=== PATIENT | female | born 1935 | race Caucasian/White ===

== ENCOUNTER 2016-06-16 10:18 | Inpatient (IN) | payer OTHER ==
[~2016-06-16] VITALS: Ht 157.5 cm; Wt 56.8 kg
[~2016-06-16 10:18] MED LIST: ASPI-515 PO; ATEN25TA PO; CEFD300C2 PO; CIPR500T3 PO; CITA10TA4 PO; CLOP75TA22 PO; HYDR-3240 PO; HYDR12.58 PO; HYDR1TAB12 PO; LEVE500T53 PO; LEVO750T26 PO; LISI-167 PO; METR500T PO; ONDA4TAB10 PO; PANT40TA3 PO; PNV1TABL4 PO; POLY17PO5 PO; POTA20TA14 PO; PRAV80TA2 PO
[2016-06-16] MEDS ORDERED: ONDANSETRON 2MG/ML, 2ML IVPush ONE (11:30)
[2016-06-16] MEDS ORDERED: HYDROmorphone 1 MG/ML, 1ML IVPush PRN (11:30)
[2016-06-16] MEDS ORDERED: SODIUM CHLORIDE FLUSH 10ML SYR IVF ONE (11:30)
[2016-06-16] MEDS ORDERED: HYDROmorphone 1 MG/ML, 1ML ONE (11:57)
[2016-06-16] MEDS ORDERED: ONDANSETRON 2MG/ML, 2ML ONE (11:58)
[2016-06-16 12:12] LABS: HEMOGLOBIN 11.3 g/dL (11.7-16.4)
[2016-06-16 12:28] LABS: BLOOD UREA NITROGEN 20 mg/dL (7-18)
[2016-06-16 12:57] LABS: DIFF TOTAL CELLS COUNTED 100 CELL DIFF
[2016-06-16 13:00] LABS: POLYCHROMASIA 1+; VERIFY COUNTS? YES
[2016-06-16] MEDS ORDERED: ACETAMINOPHEN 500 MG TABLET PO ONE (14:00)
[2016-06-16] MEDS ORDERED: CEFTRIAXONE PMX 1GM/50ML 50 ML IV ONE (14:00)
[2016-06-16] MEDS ORDERED: ACETAMINOPHEN 500 MG TABLET ONE (14:26)
[2016-06-16] MEDS ORDERED: CEFTRIAXONE PMX 1GM/50ML 50 ML ONE (14:26)
[2016-06-16] MEDS ORDERED: HYDR-882 PO (14:38)
[2016-06-16] MEDS ORDERED: RANI300T PO (14:40)
[2016-06-16] MEDS ORDERED: IBUP800T PO (14:43)
[2016-06-16] MEDS ORDERED: ONDANSETRON 2MG/ML, 2ML IVP PRN (15:00)
[2016-06-16] MEDS ORDERED: MORPHINE SULFATE 4 MG/ML, 1ML IVPush PRN (15:00)
[2016-06-16] MEDS ORDERED: ACETAMINOPHEN 325 MG TABLET PO PRN (15:00)
[2016-06-16] MEDS ORDERED: DOCUSATE 100 MG CAPSULE PO PRN (15:00)
[2016-06-16] MEDS ORDERED: BISACODYL 10 MG SUPP PR PRN (15:00)
[2016-06-16] MEDS ORDERED: POLYETHYLENE GLYCOL 17 GM PACKET PO PRN (15:00)
[2016-06-16] MEDS ORDERED: OMNIPAQUE 350 MG/ML, 100ML BOTTLE ONE (15:27)
[2016-06-16 15:28] LABS: ASPARTATE AMINO TRANSFERASE 25 U/L (15-37)
[2016-06-16] MEDS: ENOXAPARIN 40 MG/0.4 ML SQ SCH (17:20)
[2016-06-16 17:41] VITALS: BP 158/61
[2016-06-16] MEDS: OXYcodone IR 5MG TABLET PO PRN ×2 (17:41→21:49)
[2016-06-16] MEDS: SODIUM CHLORIDE 0.9% 1,000 ML IV SCH (18:10)
[2016-06-16 20:38] VITALS: BP 121/55
[2016-06-16] MEDS: CITALOPRAM 10 MG TABLET PO SCH (20:53)
[2016-06-16] MEDS: LISINOPRIL 10 MG TABLET PO SCH (20:53)
[2016-06-16] MEDS: LEVETIRACETAM 500 MG TABLET PO SCH (20:54)
[2016-06-16] MEDS: PRAVASTATIN 40 MG TABLET PO SCH (21:49)
[2016-06-17 01:15] VITALS: BP 104/52
[2016-06-17] MEDS: CEFTRIAXONE PMX 1GM/50ML 50 ML IV SCH ×2 (02:29→15:36)
[2016-06-17] MEDS: SODIUM CHLORIDE 0.9% 1,000 ML IV SCH (02:29)
[2016-06-17] MEDS: OXYcodone IR 5MG TABLET PO PRN ×3 (04:48→20:31)
[2016-06-17 06:12] LABS: ASPARTATE AMINO TRANSFERASE 20 U/L (15-37); BLOOD UREA NITROGEN 18 mg/dL (7-18)
[2016-06-17 07:01] VITALS: BP 100/51
[2016-06-17] MEDS: LEVETIRACETAM 500 MG TABLET PO SCH ×2 (10:09→20:30)
[2016-06-17] MEDS: ATENOLOL 25 MG TABLET PO SCH (10:09)
[2016-06-17] MEDS: HYDROCHLOROTHIAZIDE 12.5 MG CAPSULE PO SCH (10:10)
[2016-06-17] MEDS: LISINOPRIL 10 MG TABLET PO SCH ×2 (10:10→20:30)
[2016-06-17] MEDS ORDERED: FENTANYL PF 100 MCG/2ML ONE (10:14)
[2016-06-17] MEDS ORDERED: MIDAZOLAM 1 MG/ML, 5ML ONE (10:15)
[2016-06-17] MEDS: PANTOPROZOLE 40MG TABLET PO SCH ×2 (12:39→22:00)
[2016-06-17 13:24] VITALS: BP 104/53
[2016-06-17] MEDS: ENOXAPARIN 40 MG/0.4 ML SQ SCH (15:36)
[2016-06-17] MEDS: CITALOPRAM 10 MG TABLET PO SCH (20:29)
[2016-06-17] MEDS: PRAVASTATIN 40 MG TABLET PO SCH (20:30)
[2016-06-17 21:12] VITALS: BP 147/64
[2016-06-18 01:44] VITALS: BP 125/49
[2016-06-18] MEDS: CEFTRIAXONE PMX 1GM/50ML 50 ML IV SCH (02:32)
[2016-06-18] MEDS: OXYcodone IR 5MG TABLET PO PRN ×3 (02:37→14:30)
[2016-06-18 05:03] LABS: HEMOGLOBIN 8.9 g/dL (11.7-16.4)
[2016-06-18 05:10] LABS: BLOOD UREA NITROGEN 20 mg/dL (7-18)
[2016-06-18 07:23] VITALS: BP 129/56
[2016-06-18] MEDS: ATENOLOL 25 MG TABLET PO SCH ×2 (09:00→09:29)
[2016-06-18] MEDS: LISINOPRIL 10 MG TABLET PO SCH (09:29)
[2016-06-18] MEDS: HYDROCHLOROTHIAZIDE 12.5 MG CAPSULE PO SCH (09:30)
[2016-06-18] MEDS: PANTOPROZOLE 40MG TABLET PO SCH (09:31)
[2016-06-18] MEDS: LEVETIRACETAM 500 MG TABLET PO SCH (09:31)
[2016-06-18] MEDS ORDERED: LEVO750T6 PO (11:41)
[2016-06-18] MEDS ORDERED: PANT40TA5 PO (11:49)
[2016-06-18 13:05] VITALS: BP 127/60
== END 2016-06-18 14:45 | disposition home or self-care (01) | DRG 872 ==
LOC: ED 13:06 → EDIP 14:39 → SUATTDRO 14:47 → 4WST 16:42
PROVIDERS: ADMIT Hospitalist; ATTEND Hospitalist
PROC: 0T9B70Z Drainage of Bladder with Drainage Device, Via Natural or Artificial Opening (ICD-10-PCS; 2016-06-16)
PROC: 0DJ68ZZ Inspection of Stomach, Via Natural or Artificial Opening Endoscopic (ICD-10-PCS; principal; 2016-06-17 10:30)
DX: A41.9 Sepsis, unspecified organism (principal); E44.0 Moderate protein-calorie malnutrition; I50.22 Chronic systolic (congestive) heart failure; F11.20 Opioid dependence, uncomplicated; N10 Acute pyelonephritis; I11.0 Hypertensive heart disease with heart failure; I25.10 Atherosclerotic heart disease of native coronary artery without angina pectoris; K21.9 Gastro-esophageal reflux disease without esophagitis; I73.9 Peripheral vascular disease, unspecified; D64.9 Anemia, unspecified; M51.36 Other intervertebral disc degeneration, lumbar region; G40.909 Epilepsy, unspecified, not intractable, without status epilepticus; M54.30 Sciatica, unspecified side; E78.5 Hyperlipidemia, unspecified; F17.200 Nicotine dependence, unspecified, uncomplicated; G89.29 Other chronic pain; M19.90 Unspecified osteoarthritis, unspecified site; F32.9 Major depressive disorder, single episode, unspecified; K21.0 Gastro-esophageal reflux disease with esophagitis; I44.7 Left bundle-branch block, unspecified; K26.9 Duodenal ulcer, unspecified as acute or chronic, without hemorrhage or perforation; Z90.49 Acquired absence of other specified parts of digestive tract; Z80.59 Family history of malignant neoplasm of other urinary tract organ; Z88.2 Allergy status to sulfonamides; I25.2 Old myocardial infarction; Z88.1 Allergy status to other antibiotic agents; Z88.5 Allergy status to narcotic agent; Z68.22 Body mass index [BMI] 22.0-22.9, adult; Z87.11 Personal history of peptic ulcer disease; K22.70 Barrett's esophagus without dysplasia; K44.9 Diaphragmatic hernia without obstruction or gangrene
CPT/HCPCS: 36415; 72110; 74020; 74177; 80048; 80053; 80076; 81001; 82040; 83605; 83690; 83735; 85025; 87040; 87086; 96365; 96366; 96375; J0696; J1170; J1650; J2250; J2405; J3010; Q9967; J7030

== ENCOUNTER 2016-07-24 04:52 | Emergency (ER) | payer OTHER ==
[~2016-07-24] VITALS: Ht 157.5 cm; Wt 56.4 kg
[~2016-07-24 04:52] MED LIST changes: -CEFD300C2 PO; +CEFD300C37 PO; +HYDR-882 PO; +IBUP800T PO; +LEVO750T6 PO; +PANT40TA5 PO; +RANI300T PO
[2016-07-24] MEDS ORDERED: OMNIPAQUE 350 MG/ML, 100ML BOTTLE ONE (05:41)
[2016-07-24] MEDS ORDERED: SODIUM CHLORIDE 0.9% 1,000 ML IV ONE (05:41)
[2016-07-24] MEDS ORDERED: CLOP75TA22 PO (05:46)
[2016-07-24] MEDS ORDERED: ONDANSETRON 2MG/ML, 2ML ONE (05:52)
[2016-07-24] MEDS ORDERED: MORPHINE SULFATE 4 MG/ML, 1ML ONE (05:52)
[2016-07-24] MEDS ORDERED: ONDANSETRON 2MG/ML, 2ML IVPush ONE (06:00)
[2016-07-24] MEDS ORDERED: MORPHINE SULFATE 4 MG/ML, 1ML IVPush PRN (06:00)
[2016-07-24] MEDS ORDERED: SODIUM CHLORIDE FLUSH 10ML SYR IVF ONE (06:00)
[2016-07-24 06:14] LABS: BLOOD UREA NITROGEN 38 mg/dL (7-18)
[2016-07-24 07:48] LABS: PATH.CAST-FLAG NOT PRESENT; SPERM-FLAG NOT PRESENT; SRC-FLAG NOT PRESENT; XTAL-FLAG NOT PRESENT; YLC-FLAG NOT PRESENT
[2016-07-24 12:03] VITALS: BP 134/48
== END 2016-07-24 12:05 | disposition home or self-care (01) ==
LOC: ED 11:44
DX: R10.32 Left lower quadrant pain (principal); R33.9 Retention of urine, unspecified; K59.00 Constipation, unspecified; I10 Essential (primary) hypertension; E78.5 Hyperlipidemia, unspecified; I50.20 Unspecified systolic (congestive) heart failure; K21.9 Gastro-esophageal reflux disease without esophagitis; I73.9 Peripheral vascular disease, unspecified; M19.90 Unspecified osteoarthritis, unspecified site; I25.2 Old myocardial infarction; Z90.49 Acquired absence of other specified parts of digestive tract
CPT/HCPCS: 36415; 74177; 80048; 81001; 82040; 85025; 87086; 96361; 96374; 96375; 99285; J2405; J7030; Q9967

== ENCOUNTER 2016-11-08 21:44 | Emergency (ER) | payer OTHER ==
[~2016-11-08] VITALS: Ht 157.5 cm; Wt 47.0 kg
[~2016-11-08 21:44] MED LIST changes: -CLOP75TA22 PO; +CLOP75TA52 PO; +IBUP-1223 PO; -IBUP800T PO
[2016-11-08] MEDS ORDERED: DIAZEPAM 5 MG TABLET PO ONE (22:30)
[2016-11-08] MEDS ORDERED: HYDROmorphone 2 MG/ML, 1ML IVPush ONE (22:30)
[2016-11-08] MEDS ORDERED: DIAZEPAM 5 MG TABLET ONE (22:40)
[2016-11-08] MEDS ORDERED: HYDROmorphone 1 MG/ML, 1ML ONE (22:40)
[2016-11-08 23:46] VITALS: BP 150/49
== END 2016-11-08 23:48 | disposition home or self-care (01) ==
LOC: ED 23:39
DX: M25.552 Pain in left hip (principal); G89.29 Other chronic pain; I11.0 Hypertensive heart disease with heart failure; I50.20 Unspecified systolic (congestive) heart failure; E78.5 Hyperlipidemia, unspecified; K21.9 Gastro-esophageal reflux disease without esophagitis; M19.90 Unspecified osteoarthritis, unspecified site; I25.2 Old myocardial infarction; Z87.891 Personal history of nicotine dependence
CPT/HCPCS: 96374; 99284; J1170

== ENCOUNTER 2016-11-29 21:44 | Inpatient (IN) | payer OTHER ==
[~2016-11-29] VITALS: Ht 157.5 cm; Wt 50.6 kg
[2016-11-29] MEDS ORDERED: ONDANSETRON 2MG/ML, 2ML IVPush ONE (22:30)
[2016-11-29] MEDS ORDERED: MORPHINE SULFATE 4 MG/ML, 1ML IVPush PRN (22:30)
[2016-11-29] MEDS ORDERED: SODIUM CHLORIDE 0.9% 1,000ML IVBOLUS ONE (22:30)
[2016-11-29] MEDS ORDERED: MORPHINE SULFATE 4 MG/ML, 1ML ONE (22:36)
[2016-11-29] MEDS ORDERED: ONDANSETRON 2MG/ML, 2ML ONE (22:36)
[2016-11-29 22:44] LABS: HEMATOCRIT 31.5 % (34.6-47.8); HEMOGLOBIN 10.2 g/dL (11.7-16.4); WHITE BLOOD COUNT 6.8 x10^3/uL (3.4-10)
[2016-11-29 22:57] LABS: ASPARTATE AMINO TRANSFERASE 20 U/L (15-37); BLOOD UREA NITROGEN 21 mg/dL (7-18)
[2016-11-29 23:02] LABS: IS PT STATUS REG ER OR PRE ER? YES
[2016-11-30] MEDS ORDERED: ONDANSETRON ODT 4 MG PO PRN (01:00)
[2016-11-30] MEDS ORDERED: ENALAPRILAT 1.25 MG/ML, 2ML IVPush PRN (01:00)
[2016-11-30] MEDS ORDERED: NITROGLYCERIN 0.4 MG BOTTLE (25 TABS) SL PRN (01:00)
[2016-11-30] MEDS ORDERED: LABETALOL 5MG/ML, 20ML IVPush PRN (01:00)
[2016-11-30] MEDS ORDERED: TEMAZEPAM 15 MG CAPSULE PO PRN (01:00)
[2016-11-30] MEDS ORDERED: DOCUSATE 100 MG CAPSULE PO PRN (01:00)
[2016-11-30 01:06] VITALS: BP 167/71
[2016-11-30] MEDS: HYDROcodone/APAP 5/325 TABLET PO PRN ×5 (01:24→20:07)
[2016-11-30 02:38] LABS: FERRITIN 17.2 ng/mL (8-252)
[2016-11-30 02:44] LABS: IS PT STATUS REG ER OR PRE ER? NO
[2016-11-30] MEDS ORDERED: ASPIRIN 325 MG TABLET EC PO SCH (06:00)
[2016-11-30 07:02] LABS: HEMATOCRIT 28.6 % (34.6-47.8); HEMOGLOBIN 9.4 g/dL (11.7-16.4); WHITE BLOOD COUNT 5.8 x10^3/uL (3.4-10)
[2016-11-30 07:12] LABS: IS PT STATUS REG ER OR PRE ER? NO
[2016-11-30] MEDS ORDERED: REGADENOSON 0.4 MG/5 ML SYRINGE ONE ×2 (08:04→08:26)
[2016-11-30 08:35] VITALS: BP_SYST 121; BP_SYST 130; BP_SYST 143; BP_DIAS 59; BP_DIAS 62
[2016-11-30] MEDS: morphine SULFATE 10 MG/ML, 1ML IVPush PRN (09:00)
[2016-11-30] MEDS: LISINOPRIL 10 MG TABLET PO SCH ×2 (10:47→20:08)
[2016-11-30] MEDS: LEVETIRACETAM 500 MG TABLET PO SCH ×2 (10:47→20:07)
[2016-11-30] MEDS: ATENOLOL 25 MG TABLET PO SCH (12:31)
[2016-11-30 13:17] LABS: IS PT STATUS REG ER OR PRE ER? NO
[2016-11-30 13:50] VITALS: BP_SYST 115; BP_SYST 123; BP_SYST 128; BP_DIAS 49; BP_DIAS 57; BP_DIAS 62
[2016-11-30] MEDS: FERROUS SULFATE 325 MG TABLET PO SCH (17:35)
[2016-11-30 19:11] VITALS: BP 101/47
[2016-11-30 19:12] VITALS: BP 102/55
[2016-11-30 19:16] VITALS: BP 95/57
[2016-11-30] MEDS: ATORVASTATIN 80 MG TABLET PO SCH (20:07)
[2016-11-30] MEDS: CITALOPRAM 10 MG TABLET PO SCH (20:07)
[2016-11-30] MEDS ORDERED: ATORVASTATIN 20 MG TABLET PO SCH (21:00)
[2016-12-01 01:00] VITALS: BP 152/64
[2016-12-01] MEDS: HYDROcodone/APAP 5/325 TABLET PO PRN ×6 (01:19→23:51)
[2016-12-01] MEDS: ASPIRIN 81 MG TABLET EC PO SCH (05:18)
[2016-12-01 06:17] LABS: BLOOD UREA NITROGEN 20 mg/dL (7-18)
[2016-12-01 09:03] VITALS: BP 111/51
[2016-12-01] MEDS: LEVETIRACETAM 500 MG TABLET PO SCH ×3 (09:10→19:49)
[2016-12-01] MEDS: FERROUS SULFATE 325 MG TABLET PO SCH ×2 (09:10→17:10)
[2016-12-01] MEDS: LISINOPRIL 10 MG TABLET PO SCH ×2 (09:11→19:41)
[2016-12-01] MEDS ORDERED: MAGNESIUM SULFATE PMX 4GM/100M 100 ML IV ONE (10:00)
[2016-12-01] MEDS: ATENOLOL 25 MG TABLET PO SCH (10:12)
[2016-12-01] MEDS ORDERED: FENTANYL PF 100 MCG/2ML ONE (14:06)
[2016-12-01] MEDS ORDERED: VERAPAMIL 2.5 MG/ML, 2ML ONE (14:06)
[2016-12-01] MEDS ORDERED: TICAGRELOR 90 MG TABLET ONE (14:06)
[2016-12-01] MEDS ORDERED: MIDAZOLAM 1 MG/ML, 5ML ONE (14:06)
[2016-12-01] MEDS ORDERED: HEPARIN 1,000 UNITS/ML, 10ML ONE (14:07)
[2016-12-01] MEDS ORDERED: LIDOCAINE 2%, 20ML ONE (14:07)
[2016-12-01] MEDS: SODIUM CHLORIDE 0.9% 1,000 ML IV SCH ×2 (14:39→19:43)
[2016-12-01] MEDS: morphine SULFATE 10 MG/ML, 1ML IVPush PRN (17:10)
[2016-12-01] MEDS: CITALOPRAM 10 MG TABLET PO SCH (19:41)
[2016-12-01] MEDS: ATORVASTATIN 80 MG TABLET PO SCH (19:41)
[2016-12-01 19:49] VITALS: BP 144/59
[2016-12-02 02:00] VITALS: BP 123/56
[2016-12-02] MEDS: HYDROcodone/APAP 5/325 TABLET PO PRN ×3 (04:28→12:39)
[2016-12-02 05:29] LABS: BLOOD UREA NITROGEN 18 mg/dL (7-18)
[2016-12-02] MEDS: LEVETIRACETAM 500 MG TABLET PO SCH ×2 (09:00→09:03)
[2016-12-02] MEDS ORDERED: ISOSORBIDE MONONITRATE ER 30 MG TABLET PO SCH (09:00)
[2016-12-02] MEDS: FERROUS SULFATE 325 MG TABLET PO SCH (09:02)
[2016-12-02] MEDS: ASPIRIN 81 MG TABLET EC PO SCH (09:03)
[2016-12-02] MEDS: ATENOLOL 25 MG TABLET PO SCH (09:04)
[2016-12-02] MEDS: SODIUM CHLORIDE 0.9% 1,000 ML IV SCH (09:04)
[2016-12-02] MEDS: LISINOPRIL 10 MG TABLET PO SCH (09:04)
[2016-12-02] MEDS ORDERED: ASPI-621 PO (10:56)
[2016-12-02] MEDS ORDERED: ISOS30TA8 PO (10:56)
[2016-12-02] MEDS ORDERED: METO25TA91 PO (10:56)
[2016-12-02] MEDS ORDERED: FERR-36 PO (10:56)
[2016-12-02 12:34] VITALS: BP 140/60
[2016-12-02 12:57] VITALS: BP 157/65
[2016-12-03] MEDS ORDERED: METOPROLOL SUCCINATE 25 MG TAB.ER.24H PO SCH (06:00)
== END 2016-12-02 15:26 | disposition home or self-care (01) | DRG 286 ==
LOC: ED 23:51 → INTOOBSV 23:53 → 5SO 23:53 → OBSVTOIN 23:53 → ED 11-30 00:28 → DCLOUNGE 12-02 15:00
PROVIDERS: ADMIT Internal Medicine; ATTEND Internal Medicine
PROC: 4A023N7 Measurement of Cardiac Sampling and Pressure, Left Heart, Percutaneous Approach (ICD-10-PCS; principal; 2016-12-01)
PROC: B2160ZZ Fluoroscopy of Right and Left Heart using High Osmolar Contrast (ICD-10-PCS; 2016-12-01)
DX: I25.119 Atherosclerotic heart disease of native coronary artery with unspecified angina pectoris (principal); E43 Unspecified severe protein-calorie malnutrition; I50.22 Chronic systolic (congestive) heart failure; I11.0 Hypertensive heart disease with heart failure; J44.9 Chronic obstructive pulmonary disease, unspecified; E83.42 Hypomagnesemia; I25.5 Ischemic cardiomyopathy; I44.7 Left bundle-branch block, unspecified; D64.9 Anemia, unspecified; K21.9 Gastro-esophageal reflux disease without esophagitis; E78.5 Hyperlipidemia, unspecified; G89.29 Other chronic pain; G40.909 Epilepsy, unspecified, not intractable, without status epilepticus; M54.5 Low back pain; F32.9 Major depressive disorder, single episode, unspecified; I73.9 Peripheral vascular disease, unspecified; Z87.11 Personal history of peptic ulcer disease; I25.2 Old myocardial infarction; Z88.2 Allergy status to sulfonamides; Z90.49 Acquired absence of other specified parts of digestive tract; Z88.5 Allergy status to narcotic agent; Z87.891 Personal history of nicotine dependence; Z68.20 Body mass index [BMI] 20.0-20.9, adult
CPT/HCPCS: 36415; 71010; 78452; 80048; 80053; 82040; 82607; 82728; 83036; 83540; 83550; 83690; 83735; 84484; 85025; 85610; 85730; 93005; 93017; 93306; 93458; 99156; C1769; C1894; J1644; J2250; J2405; J2785; J3010; J3490; A9502; C9898; G0378; J2270; J3475; J7030; Q9967

== ENCOUNTER 2017-02-03 05:22 | Inpatient (IN) | payer OTHER ==
[~2017-02-03] VITALS: Ht 157.5 cm; Wt 53.2 kg
[~2017-02-03 05:22] MED LIST changes: +ASPI-621 PO; +FERR-36 PO; +ISOS30TA8 PO; +METO25TA91 PO
[2017-02-03] MEDS ORDERED: SODIUM CHLORIDE 0.9% 1,000 ML IV ONE (05:46)
[2017-02-03] MEDS ORDERED: SODIUM CHLORIDE FLUSH 10ML SYR IVF ONE (06:00)
[2017-02-03 06:13] LABS: HEMOGLOBIN 9.3 g/dL (11.7-16.4); WHITE BLOOD COUNT 12.3 x10^3/uL (3.4-10)
[2017-02-03 06:29] LABS: BLOOD UREA NITROGEN 33 mg/dL (7-18)
[2017-02-03 06:36] LABS: ASPARTATE AMINO TRANSFERASE 47 U/L (15-37)
[2017-02-03 06:37] LABS: IS PT STATUS REG ER OR PRE ER? YES
[2017-02-03] MEDS ORDERED: SODIUM CHLORIDE 0.9% 1,000ML IVBOLUS ONE (07:00)
[2017-02-03 07:11] LABS: DAU SCREEN DISCLAIMER
[2017-02-03 07:33] LABS: PATH.CAST-FLAG NOT PRESENT; SPERM-FLAG NOT PRESENT; SRC-FLAG NOT PRESENT; XTAL-FLAG NOT PRESENT; YLC-FLAG NOT PRESENT
[2017-02-03] MEDS ORDERED: SODIUM CHLORIDE FLUSH 10ML SYR IVF PRN (09:00)
[2017-02-03] MEDS ORDERED: LEVETIRACETAM 500 MG in SODIUM CHLORIDE 0.9% 100 ML IV SCH (12:00)
[2017-02-03 12:14] VITALS: BP 164/65
[2017-02-03 12:26] LABS: IS PT STATUS REG ER OR PRE ER? YES
[2017-02-03] MEDS: HYDROcodone/APAP 5/325 TABLET PO PRN ×2 (12:53→20:00)
[2017-02-03] MEDS ORDERED: MAALOX/HYOSCYAMINE/LIDOCAINE 45 ML BTL PO PRN ×2 (13:00→19:30)
[2017-02-03] MEDS: LEVETIRACETAM 1,500 MG in SODIUM CHLORIDE 0.9% 100 ML IV SCH ×2 (13:13→20:00)
[2017-02-03 14:07] VITALS: BP 123/58
[2017-02-03] MEDS ORDERED: GADOBUTROL 7.5 MMOL/7.5 ML PFS ONE (17:09)
[2017-02-03 18:20] LABS: IS PT STATUS REG ER OR PRE ER? NO
[2017-02-03] MEDS: FERROUS SULFATE 325 MG TABLET PO SCH (18:21)
[2017-02-03] MEDS: CEFTRIAXONE PMX 1GM/50ML 50 ML IV SCH (18:56)
[2017-02-03] MEDS ORDERED: ONDANSETRON 2MG/ML, 2ML IVPush PRN (19:00)
[2017-02-03 20:00] VITALS: BP 144/68
[2017-02-03] MEDS: LISINOPRIL 10 MG TABLET PO SCH (20:06)
[2017-02-03] MEDS: PRAVASTATIN 40 MG TABLET PO SCH (20:07)
[2017-02-03] MEDS: CITALOPRAM 10 MG TABLET PO SCH (20:07)
[2017-02-03] MEDS: OMEPRAZOLE 20 MG CAPSULE.DR PO SCH (20:34)
[2017-02-03] MEDS ORDERED: LEVETIRACETAM 500 MG TABLET PO SCH (21:00)
[2017-02-03 23:42] LABS: IS PT STATUS REG ER OR PRE ER? NO
[2017-02-04] VITALS (10 sets, daily range): BP systolic 97–144; BP diastolic 46–64
[2017-02-04] MEDS: LEVETIRACETAM 1,500 MG in SODIUM CHLORIDE 0.9% 100 ML IV SCH ×2 (00:04→12:28)
[2017-02-04] MEDS: HYDROcodone/APAP 5/325 TABLET PO PRN ×4 (00:04→18:20)
[2017-02-04] MEDS: ASPIRIN 81 MG TABLET EC PO SCH (05:40)
[2017-02-04 05:41] LABS: HEMATOCRIT 25.7 % (34.6-47.8); HEMOGLOBIN 8.3 g/dL (11.7-16.4); WHITE BLOOD COUNT 11.4 x10^3/uL (3.4-10)
[2017-02-04] MEDS: METOPROLOL SUCCINATE 25 MG TAB.ER.24H PO SCH (05:42)
[2017-02-04 05:46] LABS: BLOOD UREA NITROGEN 19 mg/dL (7-18)
[2017-02-04 05:52] LABS: ASPARTATE AMINO TRANSFERASE 25 U/L (15-37)
[2017-02-04 05:57] LABS: IS PT STATUS REG ER OR PRE ER? NO
[2017-02-04] MEDS: HYDROCHLOROTHIAZIDE 12.5 MG CAPSULE PO SCH (08:32)
[2017-02-04] MEDS: OMEPRAZOLE 20 MG CAPSULE.DR PO SCH ×2 (08:33→20:17)
[2017-02-04] MEDS: FERROUS SULFATE 325 MG TABLET PO SCH ×2 (08:33→18:20)
[2017-02-04] MEDS: CLOPIDOGREL 75 MG TABLET PO SCH (08:35)
[2017-02-04] MEDS: ISOSORBIDE MONONITRATE ER 30 MG TABLET PO SCH (08:35)
[2017-02-04] MEDS: LISINOPRIL 10 MG TABLET PO SCH ×2 (08:36→20:16)
[2017-02-04 14:18] LABS: IS PT STATUS REG ER OR PRE ER? NO
[2017-02-04] MEDS ORDERED: GADOBUTROL 10 MMOL/10 ML VIAL ONE (19:43)
[2017-02-04] MEDS: CEFTRIAXONE PMX 1GM/50ML 50 ML IV SCH (19:45)
[2017-02-04] MEDS: PRAVASTATIN 40 MG TABLET PO SCH (20:16)
[2017-02-04] MEDS: CITALOPRAM 10 MG TABLET PO SCH (20:17)
[2017-02-05] MEDS: LEVETIRACETAM 1,500 MG in SODIUM CHLORIDE 0.9% 100 ML IV SCH ×2 (00:07→13:03)
[2017-02-05] MEDS: HYDROcodone/APAP 5/325 TABLET PO PRN ×5 (00:07→23:09)
[2017-02-05 01:16] VITALS: BP 119/53
[2017-02-05] MEDS: ASPIRIN 81 MG TABLET EC PO SCH (05:14)
[2017-02-05] MEDS: METOPROLOL SUCCINATE 25 MG TAB.ER.24H PO SCH (05:14)
[2017-02-05 06:00] LABS: BLOOD UREA NITROGEN 24 mg/dL (7-18)
[2017-02-05 06:07] LABS: ASPARTATE AMINO TRANSFERASE 19 U/L (15-37)
[2017-02-05 06:10] LABS: IS PT STATUS REG ER OR PRE ER? NO; WHITE BLOOD COUNT 8.4 x10^3/uL (3.4-10)
[2017-02-05 07:50] VITALS: BP 114/50
[2017-02-05] MEDS: OMEPRAZOLE 20 MG CAPSULE.DR PO SCH ×2 (08:28→20:32)
[2017-02-05] MEDS: FERROUS SULFATE 325 MG TABLET PO SCH ×2 (08:28→17:28)
[2017-02-05] MEDS: CLOPIDOGREL 75 MG TABLET PO SCH (08:30)
[2017-02-05] MEDS: LISINOPRIL 10 MG TABLET PO SCH ×2 (08:30→20:31)
[2017-02-05] MEDS: HYDROCHLOROTHIAZIDE 12.5 MG CAPSULE PO SCH (08:31)
[2017-02-05] MEDS: ISOSORBIDE MONONITRATE ER 30 MG TABLET PO SCH (08:32)
[2017-02-05 12:21] VITALS: BP 136/60
[2017-02-05 20:00] VITALS: BP 129/56
[2017-02-05] MEDS: CEFTRIAXONE PMX 1GM/50ML 50 ML IV SCH (20:28)
[2017-02-05] MEDS: PRAVASTATIN 40 MG TABLET PO SCH (20:29)
[2017-02-05] MEDS: CITALOPRAM 10 MG TABLET PO SCH (20:32)
[2017-02-05] MEDS ORDERED: KETOROLAC 30 MG/1 ML IVPush ONE (21:00)
[2017-02-06] VITALS (15 sets, daily range): BP systolic 116–162; BP diastolic 48–76
[2017-02-06] MEDS: LEVETIRACETAM 1,500 MG in SODIUM CHLORIDE 0.9% 100 ML IV SCH ×2 (00:23→12:46)
[2017-02-06] MEDS: HYDROcodone/APAP 5/325 TABLET PO PRN ×5 (04:08→23:15)
[2017-02-06 05:34] LABS: HEMATOCRIT 23.2 % (34.6-47.8); HEMOGLOBIN 7.7 g/dL (11.7-16.4); WHITE BLOOD COUNT 7.1 x10^3/uL (3.4-10)
[2017-02-06 05:45] LABS: BLOOD UREA NITROGEN 30 mg/dL (7-18)
[2017-02-06 05:53] LABS: IS PT STATUS REG ER OR PRE ER? NO
[2017-02-06] MEDS: ASPIRIN 81 MG TABLET EC PO SCH (06:08)
[2017-02-06] MEDS: METOPROLOL SUCCINATE 25 MG TAB.ER.24H PO SCH (06:08)
[2017-02-06] MEDS: HYDROCHLOROTHIAZIDE 12.5 MG CAPSULE PO SCH (08:57)
[2017-02-06] MEDS: OMEPRAZOLE 20 MG CAPSULE.DR PO SCH ×2 (08:57→20:35)
[2017-02-06] MEDS: CLOPIDOGREL 75 MG TABLET PO SCH (08:58)
[2017-02-06] MEDS: FERROUS SULFATE 325 MG TABLET PO SCH ×2 (08:59→16:59)
[2017-02-06] MEDS: ISOSORBIDE MONONITRATE ER 30 MG TABLET PO SCH (08:59)
[2017-02-06] MEDS: LISINOPRIL 10 MG TABLET PO SCH ×2 (08:59→20:35)
[2017-02-06 11:44] LABS: FERRITIN 24.5 ng/mL (8-252)
[2017-02-06 19:04] LABS: IS PT STATUS REG ER OR PRE ER? NO
[2017-02-06] MEDS: CEFTRIAXONE PMX 1GM/50ML 50 ML IV SCH (20:33)
[2017-02-06] MEDS: CITALOPRAM 10 MG TABLET PO SCH (20:34)
[2017-02-06] MEDS: LEVETIRACETAM 500 MG TABLET PO SCH (20:35)
[2017-02-06] MEDS: PRAVASTATIN 40 MG TABLET PO SCH (20:35)
[2017-02-07] MEDS ORDERED: DIAZEPAM 5 MG TABLET PO ONE (01:00)
[2017-02-07 01:38] VITALS: BP 160/65
[2017-02-07 05:07] VITALS: BP 148/67
[2017-02-07] MEDS: ASPIRIN 81 MG TABLET EC PO SCH (05:08)
[2017-02-07] MEDS: METOPROLOL SUCCINATE 25 MG TAB.ER.24H PO SCH (05:09)
[2017-02-07] MEDS: HYDROcodone/APAP 5/325 TABLET PO PRN ×3 (05:10→13:09)
[2017-02-07 05:30] LABS: HEMATOCRIT 36.7 % (34.6-47.8); HEMOGLOBIN 12.1 g/dL (11.7-16.4); WHITE BLOOD COUNT 9.5 x10^3/uL (3.4-10)
[2017-02-07 05:31] LABS: BLOOD UREA NITROGEN 29 mg/dL (7-18)
[2017-02-07 05:57] LABS: IS PT STATUS REG ER OR PRE ER? NO
[2017-02-07 06:43] VITALS: BP 152/63
[2017-02-07] MEDS: CLOPIDOGREL 75 MG TABLET PO SCH (09:02)
[2017-02-07] MEDS: ISOSORBIDE MONONITRATE ER 30 MG TABLET PO SCH (09:02)
[2017-02-07] MEDS: LISINOPRIL 10 MG TABLET PO SCH (09:03)
[2017-02-07] MEDS: LEVETIRACETAM 500 MG TABLET PO SCH (09:03)
[2017-02-07] MEDS: HYDROCHLOROTHIAZIDE 12.5 MG CAPSULE PO SCH (09:03)
[2017-02-07] MEDS: OMEPRAZOLE 20 MG CAPSULE.DR PO SCH (09:03)
[2017-02-07] MEDS: FERROUS SULFATE 325 MG TABLET PO SCH (09:06)
[2017-02-07 13:16] VITALS: BP 149/51
[2017-02-07] MEDS ORDERED: LEVE500T53 PO (14:26)
[2017-02-07] MEDS ORDERED: HYDR-3240 PO (14:26)
[2017-02-07] MEDS ORDERED: OMEP-110 PO (14:26)
== END 2017-02-07 15:48 | disposition home health service (06) | DRG 871 ==
LOC: ED 06:31 → EDIP 08:45 → 4WST 11:51
PROVIDERS: ADMIT Hospitalist; ATTEND Hospitalist
PROC: 30233N1 Transfusion of Nonautologous Red Blood Cells into Peripheral Vein, Percutaneous Approach (ICD-10-PCS; principal; 2017-02-06)
DX: A41.9 Sepsis, unspecified organism (principal); G93.41 Metabolic encephalopathy; N17.0 Acute kidney failure with tubular necrosis; I25.82 Chronic total occlusion of coronary artery; E44.1 Mild protein-calorie malnutrition; I11.0 Hypertensive heart disease with heart failure; I50.22 Chronic systolic (congestive) heart failure; N39.0 Urinary tract infection, site not specified; M41.9 Scoliosis, unspecified; I65.22 Occlusion and stenosis of left carotid artery; W06.XXXA Fall from bed, initial encounter; E86.0 Dehydration; D64.9 Anemia, unspecified; E78.5 Hyperlipidemia, unspecified; I25.10 Atherosclerotic heart disease of native coronary artery without angina pectoris; G40.909 Epilepsy, unspecified, not intractable, without status epilepticus; G89.29 Other chronic pain; I44.7 Left bundle-branch block, unspecified; F32.9 Major depressive disorder, single episode, unspecified; I65.29 Occlusion and stenosis of unspecified carotid artery; I73.9 Peripheral vascular disease, unspecified; S01.01XA Laceration without foreign body of scalp, initial encounter; M54.5 Low back pain; R73.9 Hyperglycemia, unspecified; J44.9 Chronic obstructive pulmonary disease, unspecified; K21.9 Gastro-esophageal reflux disease without esophagitis; I25.2 Old myocardial infarction; Z86.73 Personal history of transient ischemic attack (TIA), and cerebral infarction without residual deficits; Z87.891 Personal history of nicotine dependence; Z87.11 Personal history of peptic ulcer disease; Z91.19 Patient's noncompliance with other medical treatment and regimen; Y93.89 Activity, other specified; Y92.092 Bedroom in other non-institutional residence as the place of occurrence of the external cause; Y99.8 Other external cause status; Z90.49 Acquired absence of other specified parts of digestive tract; Z88.2 Allergy status to sulfonamides; Z88.5 Allergy status to narcotic agent; Z88.6 Allergy status to analgesic agent; I65.23 Occlusion and stenosis of bilateral carotid arteries
CPT/HCPCS: 36415; 70450; 70544; 70549; 70553; 71010; 72110; 72125; 72220; 80048; 80053; 80307; 81001; 82040; 82140; 82728; 83540; 83550; 83735; 84484; 85025; 85610; 86850; 86900; 86923; 87086; 93005; 93306; 93880; 95819; 99285; A9585; J0696; J1885; J1953; J2405; G0479; J7030; P9016

== ENCOUNTER → 2017-03-25 | Outpatient (CLI) | payer OTHER ==
[~2017-03-25] MED LIST changes: -FERR-36 PO; +FERR-51 PO; +HYDR-3307 PO; +OMEP-110 PO
[2017-03-25 10:13] LABS: BASOPHILS # (AUTO) 0.04 x10^3/uL (0-0.1); BASOPHILS % (AUTO) 0 % (0-1); EOSINOPHILS # (AUTO) 0.19 x10^3/uL (0-0.4); EOSINOPHILS % (AUTO) 2 % (1-7); LYMPHOCYTES # (AUTO) 1.33 x10^3/uL (1-3.4); LYMPHOCYTES % (AUTO) 15 % (22-44); MD NO; MEAN CORPUSCULAR HEMOGLOBIN 30.3 pg (27.0-34.8); MEAN CORPUSCULAR HGB CONC 33.2 g/dL (32.4-35.8); MEAN CORPUSCULAR VOLUME 91.2 fL (80-100); MEAN PLATELET VOLUME 7.6 fL (7.4-10.4); MONOCYTES # (AUTO) 0.56 x10^3/uL (0.2-0.8); MONOCYTES % (AUTO) 6 % (2-9); NEUTROPHILS % (AUTO) 77 % (42-75); PLATELET COUNT 358 x10^3/uL (130-400); RED BLOOD COUNT 4.44 x10^6/uL (3.82-5.3); RED CELL DISTRIBUTION WIDTH 17.9 % (9.6-15.2)
[2017-03-25 10:14] LABS: MICROSCOPIC NOT IND
[2017-03-25 10:22] LABS: INTERNATIONAL NORMALIZED RATIO 0.98 (0.93-1.1); PROTHROMBIN TIME 10.2 Seconds (9.6-11.5)
[2017-03-25 10:26] LABS: ALANINE AMINOTRANSFERASE 29 U/L (12-78); ALBUMIN 3.9 g/dL (3.4-5.0); ANION GAP 8 mmol/L (5-15); CALCIUM 9.2 mg/dL (8.5-10.1); CHLORIDE 104 mmol/L (98-107); CREATININE 1.05 mg/dL (0.55-1.02)
[2017-03-25 10:28] LABS: ALKALINE PHOSPHATASE 106 U/L (45-117); BILIRUBIN,TOTAL 0.2 mg/dL (0.2-1.0)
[2017-03-25 10:35] LABS: HCT (SEDRATE) 40.5 % (34.6-47.8)
== END | disposition home or self-care (01) ==
LOC: STAR 08:41
PROVIDERS: ATTEND Orthopaedic Surgery Orthopaedic Surgery of the Spine
DX: Z01.818 Encounter for other preprocedural examination (principal); M41.86 Other forms of scoliosis, lumbar region; R94.31 Abnormal electrocardiogram [ECG] [EKG]
CPT/HCPCS: 36415; 80053; 81003; 85025; 85610; 85651; 85730; 93005

== ENCOUNTER 2017-04-01 05:57 | Outpatient (CLI) | payer OTHER ==
[~2017-04-01] VITALS: Ht 157.5 cm; Wt 43.2 kg
[~2017-04-01 05:57] MED LIST changes: +FERR-36 PO; -FERR-51 PO
[2017-04-01] MEDS ORDERED: VANCOMYCIN 1,000 MG ONE (06:50)
[2017-04-01] MEDS ORDERED: THROMBIN 20,000 UNIT VIAL TP ONE (06:50)
[2017-04-01] MEDS ORDERED: BUPIVACAINE/PF 0.5% ONE (06:50)
[2017-04-01] MEDS ORDERED: EPINEPHRINE 1 MG/ML, 1ML ONE (06:50)
[2017-04-01] MEDS ORDERED: BACITRACIN 50,000 UNIT ONE (06:50)
== END 2017-04-01 07:08 | disposition home or self-care (01) ==
LOC: UNDOADMIN 05:57 → SDC 05:57 → ORIP 05:57 → UNDODISIN 07:08 → SDC 07:08 → EDSTATUS 07:30
PROVIDERS: ATTEND Orthopaedic Surgery Orthopaedic Surgery of the Spine
DX: Z02.9 Encounter for administrative examinations, unspecified (principal)
CPT/HCPCS: J0171; J3370; J3490

== ENCOUNTER → 2017-05-06 | Outpatient (CLI) | payer OTHER ==
[~2017-05-06] MED LIST changes: -FERR-36 PO; +FERR-51 PO
[2017-05-06 14:39] LABS: BASOPHILS # (AUTO) 0.03 x10^3/uL (0-0.1); BASOPHILS % (AUTO) 0 % (0-1); EOSINOPHILS # (AUTO) 0.16 x10^3/uL (0-0.4); EOSINOPHILS % (AUTO) 2 % (1-7); LYMPHOCYTES # (AUTO) 2.22 x10^3/uL (1-3.4); LYMPHOCYTES % (AUTO) 29 % (22-44); MD NO; MEAN CORPUSCULAR HEMOGLOBIN 30.2 pg (27.0-34.8); MEAN CORPUSCULAR HGB CONC 32.4 g/dL (32.4-35.8); MEAN PLATELET VOLUME 7.6 fL (7.4-10.4); MONOCYTES # (AUTO) 0.67 x10^3/uL (0.2-0.8); MONOCYTES % (AUTO) 9 % (2-9); NEUTROPHILS # (AUTO) 4.67 x10^3/uL (1.8-6.8); NEUTROPHILS % (AUTO) 60 % (42-75); PLATELET COUNT 383 x10^3/uL (130-400); RED BLOOD COUNT 4.17 x10^6/uL (3.82-5.3); RED CELL DISTRIBUTION WIDTH 16.7 % (9.6-15.2)
[2017-05-06 14:41] LABS: MICROSCOPIC AUTO
[2017-05-06 14:47] LABS: PROTHROMBIN TIME 10.3 Seconds (9.6-11.5)
[2017-05-06 14:50] LABS: ALBUMIN 3.7 g/dL (3.4-5.0); ANION GAP 7 mmol/L (5-15); CHLORIDE 106 mmol/L (98-107)
[2017-05-06 14:53] LABS: ALANINE AMINOTRANSFERASE 29 U/L (12-78); ALKALINE PHOSPHATASE 122 U/L (45-117); BILIRUBIN,TOTAL 0.4 mg/dL (0.2-1.0); CREATININE 0.96 mg/dL (0.55-1.02); TOTAL PROTEIN 7.9 g/dL (6.4-8.2)
[2017-05-06 15:26] LABS: HCT (SEDRATE) 38.7 % (34.6-47.8)
== END | disposition home or self-care (01) ==
LOC: STAR 13:03
PROVIDERS: ATTEND Orthopaedic Surgery Orthopaedic Surgery of the Spine
DX: Z01.818 Encounter for other preprocedural examination (principal); R94.31 Abnormal electrocardiogram [ECG] [EKG]; M41.86 Other forms of scoliosis, lumbar region
CPT/HCPCS: 36415; 80053; 81001; 85025; 85610; 85651; 85730; 93005

== ENCOUNTER → 2017-05-13 | Outpatient (CLI) | payer OTHER ==
[~2017-05-13] VITALS: Ht 157.5 cm; Wt 43.6 kg
[~2017-05-13] MED LIST changes: +BACITRACIN 50,000 UNIT ONE; +BUPIVACAINE/PF 0.5% ONE; +EPINEPHRINE 1 MG/ML, 1ML ONE; +LIDOCAINE-MPF 1%, 2ML ONE; +LIDOCAINE-MPF 2% ,5ML ONE; +MIDAZOLAM 1 MG/ML, 2ML ONE; +PHENYLEPHRINE 10 MG/ML ONE; +PROPOFOL 10 MG/ML, 20ML ONE; +REMIFENTANIL 2 MG ONE; +ROCURONIUM 10 MG/ML,10ML ONE; +THROMBIN 20,000 UNIT VIAL TP ONE; +VANCOMYCIN 1,000 MG ONE; +WATER-INJECTION,STERILE 10 ML IV ONE
[2017-05-13 06:52] VITALS: BP 148/70
[2017-05-13] MEDS: LACTATED RINGERS 1,000 ML IV SCH (07:15)
[2017-05-13] MEDS: LIDOCAINE-MPF 1%, 2ML INFIL PRN (07:15)
== END ==
LOC: ORIP 06:11 → UNDOADMIN 06:11 → SDC 06:11 → EDSTATUS 07:30
PROVIDERS: ATTEND Orthopaedic Surgery Orthopaedic Surgery of the Spine
DX: I34.0 Nonrheumatic mitral (valve) insufficiency (principal); I07.1 Rheumatic tricuspid insufficiency; I25.10 Atherosclerotic heart disease of native coronary artery without angina pectoris; J44.9 Chronic obstructive pulmonary disease, unspecified; I10 Essential (primary) hypertension; E78.5 Hyperlipidemia, unspecified; M41.9 Scoliosis, unspecified; M48.061 Spinal stenosis, lumbar region without neurogenic claudication; M43.16 Spondylolisthesis, lumbar region; F32.9 Major depressive disorder, single episode, unspecified; E78.00 Pure hypercholesterolemia, unspecified; Z95.5 Presence of coronary angioplasty implant and graft; Z98.890 Other specified postprocedural states; Z87.891 Personal history of nicotine dependence
CPT/HCPCS: 36415; 86850; 86900; 93306; J0171; J2250; J3490; J7120; J2704; J3370; J2370

== ENCOUNTER 2017-09-17 08:32 | Emergency (ER) | payer OTHER ==
[~2017-09-17] VITALS: Ht 157.5 cm; Wt 45.4 kg
[~2017-09-17 08:32] MED LIST changes: -BACITRACIN 50,000 UNIT ONE; -BUPIVACAINE/PF 0.5% ONE; -EPINEPHRINE 1 MG/ML, 1ML ONE; -LIDOCAINE-MPF 1%, 2ML ONE; -LIDOCAINE-MPF 2% ,5ML ONE; -MIDAZOLAM 1 MG/ML, 2ML ONE; -PHENYLEPHRINE 10 MG/ML ONE; -PROPOFOL 10 MG/ML, 20ML ONE; -REMIFENTANIL 2 MG ONE; -ROCURONIUM 10 MG/ML,10ML ONE; -THROMBIN 20,000 UNIT VIAL TP ONE; -VANCOMYCIN 1,000 MG ONE; -WATER-INJECTION,STERILE 10 ML IV ONE
[2017-09-17 08:39] VITALS: BP 124/78
[2017-09-17] MEDS ORDERED: HYDROcodone/APAP 10/325 MG TABLET ONE (09:13)
[2017-09-17] MEDS ORDERED: HYDROcodone/APAP 10/325 MG TABLET PO ONE (09:30)
[2017-09-17 09:31] LABS: ALANINE AMINOTRANSFERASE 20 U/L (12-78); ALBUMIN 3.2 g/dL (3.4-5.0); ANION GAP 7 mmol/L (5-15); BASOPHILS % (AUTO) 0 % (0-1); CALCIUM 9.1 mg/dL (8.5-10.1); CHLORIDE 94 mmol/L (98-107); EOSINOPHILS # (AUTO) 0.02 x10^3/uL (0-0.4); EOSINOPHILS % (AUTO) 0 % (1-7); LYMPHOCYTES # (AUTO) 1.16 x10^3/uL (1-3.4); LYMPHOCYTES % (AUTO) 13 % (22-44); MD NO; MEAN CORPUSCULAR HEMOGLOBIN 28.4 pg (27.0-34.8); MEAN CORPUSCULAR HGB CONC 32.6 g/dL (32.4-35.8); MEAN CORPUSCULAR VOLUME 87.1 fL (80-100); MEAN PLATELET VOLUME 7.5 fL (7.4-10.4); MONOCYTES # (AUTO) 0.64 x10^3/uL (0.2-0.8); MONOCYTES % (AUTO) 7 % (2-9); NEUTROPHILS # (AUTO) 7.31 x10^3/uL (1.8-6.8); NEUTROPHILS % (AUTO) 80 % (42-75); PLATELET COUNT 463 x10^3/uL (130-400); RED BLOOD COUNT 3.69 x10^6/uL (3.82-5.3); RED CELL DISTRIBUTION WIDTH 16.9 % (9.6-15.2)
[2017-09-17 09:34] LABS: ALKALINE PHOSPHATASE 97 U/L (45-117); BILIRUBIN,TOTAL 0.4 mg/dL (0.2-1.0); CREATININE 1.13 mg/dL (0.55-1.02); TOTAL PROTEIN 6.9 g/dL (6.4-8.2)
[2017-09-17 10:10] LABS: MICROSCOPIC AUTO
[2017-09-17 10:13] LABS: CULTURE INDICATED? YES
== END 2017-09-17 10:55 | disposition home or self-care (01) ==
LOC: ED 09:11
DX: G89.29 Other chronic pain (principal); N39.0 Urinary tract infection, site not specified; E78.5 Hyperlipidemia, unspecified; I25.2 Old myocardial infarction; I50.20 Unspecified systolic (congestive) heart failure; I11.0 Hypertensive heart disease with heart failure; I73.9 Peripheral vascular disease, unspecified; M19.90 Unspecified osteoarthritis, unspecified site; F11.20 Opioid dependence, uncomplicated; F17.200 Nicotine dependence, unspecified, uncomplicated
CPT/HCPCS: 36415; 71045; 80053; 81001; 85025; 87086; 93005; 99285

== ENCOUNTER 2018-08-25 09:34 | Outpatient (CLI) | payer MEDICARE ==
[~2018-08-25 09:34] MED LIST changes: -ASPI-621 PO; +ASPI81TA45 PO; +ERGO500017 PO; +HYDR-3653 PO; -HYDR-882 PO; -HYDR12.58 PO; -HYDR1TAB12 PO; +HYDR1TAB13 PO; +HYDROCHLOROTH12.5 MG PO; +ONDA4TAB13 PO; +SUCR1ORA5 PO
[2018-08-25 11:14] LABS: INTERNATIONAL NORMALIZED RATIO 1.03 (0.93-1.1); PROTHROMBIN TIME 10.8 Seconds (9.6-11.5)
[2018-08-25 11:15] LABS: MICROSCOPIC AUTO
[2018-08-25 11:15] LABS: BASOPHILS # (AUTO) 0.04 x10^3/uL (0-0.1); BASOPHILS % (AUTO) 1 % (0-1); EOSINOPHILS # (AUTO) 0.35 x10^3/uL (0-0.4); EOSINOPHILS % (AUTO) 4 % (1-7); HCT (SEDRATE) 35.5 % (34.6-47.8); LYMPHOCYTES # (AUTO) 2.12 x10^3/uL (1-3.4); LYMPHOCYTES % (AUTO) 25 % (22-44); MD NO; MEAN CORPUSCULAR HGB CONC 31.6 g/dL (32.4-35.8); MEAN CORPUSCULAR VOLUME 82.3 fL (80-100); MONOCYTES # (AUTO) 0.57 x10^3/uL (0.2-0.8); MONOCYTES % (AUTO) 7 % (2-9); NEUTROPHILS # (AUTO) 5.56 x10^3/uL (1.8-6.8); NEUTROPHILS % (AUTO) 64 % (42-75); PLATELET COUNT 450 x10^3/uL (130-400); RED BLOOD COUNT 4.35 x10^6/uL (3.82-5.3)
[2018-08-25 11:16] LABS: CULTURE INDICATED? YES
[2018-08-25 11:17] LABS: ALANINE AMINOTRANSFERASE 24 U/L (12-78); ALBUMIN 3.4 g/dL (3.4-5.0); ANION GAP 8 mmol/L (5-15); CHLORIDE 107 mmol/L (98-107); CREATININE 1.01 mg/dL (0.55-1.02)
[2018-08-25 11:21] LABS: ALKALINE PHOSPHATASE 164 U/L (45-117); BILIRUBIN,TOTAL 0.2 mg/dL (0.2-1.0)
== END 2018-08-25 23:59 | disposition home or self-care (01) ==
LOC: STAR 09:34
PROVIDERS: ATTEND Orthopaedic Surgery Orthopaedic Surgery of the Spine
DX: Z01.818 Encounter for other preprocedural examination (principal); M16.12 Unilateral primary osteoarthritis, left hip; R94.31 Abnormal electrocardiogram [ECG] [EKG]
CPT/HCPCS: 36415; 71046; 80053; 81001; 85025; 85610; 85651; 85730; 87081; 87086; 87147; 93005

== ENCOUNTER 2018-09-01 07:26 | Inpatient (IN) | payer MEDICARE ==
[~2018-09-01] VITALS: Ht 157.5 cm; Wt 54.8 kg
[~2018-09-01 07:26] MED LIST changes: +BUPIVACAINE/EPI 0.5% 1:200K ONE; +FENTANYL PF 250 MCG/5ML ONE; +THROMBIN 20,000 UNIT VIAL TP ONE; +TRANEXAMIC ACID 100 MG/ML, 10ML ONE; +VANCOMYCIN 1,000 MG ONE
[2018-09-01] MEDS ORDERED: VANCOMYCIN PMX 1GM/200ML 200 ML IV STA (07:31)
[2018-09-01 07:48] VITALS: BP 162/58
[2018-09-01] MEDS ORDERED: LACTATED RINGERS 1,000 ML IV SCH (07:53)
[2018-09-01] MEDS ORDERED: GABAPENTIN 300 MG CAPSULE PO ONE (08:00)
[2018-09-01] MEDS ORDERED: OxyconTIN ER 20 MG TAB.ER PO ONE (08:00)
[2018-09-01] MEDS ORDERED: ACETAMINOPHEN 500 MG TABLET PO ONE (08:00)
[2018-09-01] MEDS ORDERED: FAMOTIDINE 20 MG TABLET PO ONE (08:00)
[2018-09-01] MEDS ORDERED: DEXAMETHASONE 4 MG/ML, 1ML ONE ×2 (08:32→09:35)
[2018-09-01] MEDS ORDERED: PROMETHAZINE 25 MG/ML, 1ML IV PRN (09:30)
[2018-09-01] MEDS ORDERED: LABETALOL 5MG/ML, 20ML IV PRN (09:30)
[2018-09-01] MEDS ORDERED: FENTANYL PF 100 MCG/2ML IV PRN (09:30)
[2018-09-01] MEDS ORDERED: ONDANSETRON 2MG/ML, 2ML IV PRN (09:30)
[2018-09-01] MEDS ORDERED: DIAZEPAM 5 MG/ML, 2ML IVPush PRN (09:30)
[2018-09-01] MEDS ORDERED: OXYcodone 5 MG/5 ML ORAL.SOL UDC PO PRN ×2 (09:30→13:30)
[2018-09-01] MEDS ORDERED: hydrALAzine 20 MG/ML, 1ML IV PRN (09:30)
[2018-09-01] MEDS ORDERED: PHENYLEPHRINE 10 MG/ML ONE (09:35)
[2018-09-01] MEDS ORDERED: PROPOFOL 10 MG/ML, 20ML ONE (09:35)
[2018-09-01] MEDS ORDERED: ROCURONIUM 10MG/ML,5ML ONE (09:35)
[2018-09-01] MEDS ORDERED: ONDANSETRON 2MG/ML, 2ML ONE (09:35)
[2018-09-01] MEDS ORDERED: HYDROmorphone 2 MG/ML, 1ML ONE (10:20)
[2018-09-01] MEDS: HYDROmorphone 2 MG/ML, 1ML IVPush PRN ×3 (10:24→11:38)
[2018-09-01] MEDS ORDERED: TRANEXAMIC ACID 1,000 MG in SODIUM CHLORIDE 0.9% 100 ML IVPB ONE (10:30)
[2018-09-01] MEDS ORDERED: LABETALOL 5 MG/ML SYRINGE IV PRN (10:48)
[2018-09-01] MEDS ORDERED: DIAZEPAM 5 MG/ML, 2ML ONE (10:55)
[2018-09-01] MEDS ORDERED: OXYcodone 5 MG/5 ML ORAL.SOL UDC ONE (12:16)
[2018-09-01] MEDS ORDERED: ACETAMINOPHEN 500 MG TABLET PO PRN (13:00)
[2018-09-01] MEDS ORDERED: D5%-0.9% NACL+KCL 20MEQ 1,000 ML IV SCH (13:00)
[2018-09-01] MEDS ORDERED: DEXAMETHASONE 4 MG/ML, 1ML IV PRN (13:00)
[2018-09-01] MEDS ORDERED: LACTATED RINGERS 1,000 ML IVBOLUS PRN (13:00)
[2018-09-01] MEDS ORDERED: SODIUM CHLORIDE 0.9% 1,000ML IVBOLUS PRN (13:00)
[2018-09-01] MEDS: SCOPOLAMINE PATCH, 1.5MG PATCH.TD72 TD SCH (13:30)
[2018-09-01] MEDS ORDERED: morphine SULFATE 10 MG/ML, 1ML IV PRN (13:30)
[2018-09-01] MEDS ORDERED: PROMETHAZINE 25 MG SUPP PR PRN (13:30)
[2018-09-01] MEDS ORDERED: LORazepam 1MG TABLET PO PRN (13:30)
[2018-09-01] MEDS ORDERED: DIPHENHYDRAMINE 25 MG CAPSULE PO PRN (13:30)
[2018-09-01] MEDS ORDERED: METOCLOPRAMIDE 5 MG/ML, 2ML IV PRN (13:30)
[2018-09-01] MEDS ORDERED: ALUMINUM/MAG/SIMETHICONE 30 ML UDC PO PRN (13:30)
[2018-09-01] MEDS ORDERED: ONDANSETRON ODT 4 MG PO PRN (13:30)
[2018-09-01] MEDS ORDERED: ONDANSETRON 2MG/ML, 2ML IVPush PRN (13:30)
[2018-09-01] MEDS ORDERED: BISACODYL 10 MG SUPP PR PRN (13:30)
[2018-09-01] MEDS ORDERED: PROMETHAZINE 25 MG/ML, 1ML IM PRN (13:30)
[2018-09-01] MEDS ORDERED: METOCLOPRAMIDE 10MG TABLET PO PRN (13:30)
[2018-09-01] MEDS ORDERED: ZOLPIDEM 5MG TABLET PO PRN (13:30)
[2018-09-01] MEDS ORDERED: DIPHENHYDRAMINE 50 MG/ML, 1ML IVPush PRN (13:30)
[2018-09-01] MEDS ORDERED: LORazepam 2 MG/ML, 1ML IV PRN (13:30)
[2018-09-01] MEDS ORDERED: ACETAMINOPHEN 325 MG TABLET PO PRN (14:00)
[2018-09-01] MEDS: POTASSIUM CHLORIDE 20 MEQ in D5%-0.45% NACL 1,000 ML IV SCH (16:01)
[2018-09-01 16:58] VITALS: BP 122/52
[2018-09-01] MEDS ORDERED: CALCIUM/VITAMIN D3 250-125 TABLET PO SCH (17:00)
[2018-09-01] MEDS: CEFAZOLIN PMX 1GM/50ML 50 ML IVPB SCH (17:49)
[2018-09-01] MEDS: CALCIUM/VITAMIN D3 250-125 TABLET PO SCH (17:49)
[2018-09-01] MEDS ORDERED: FERROUS SULFATE 325 MG TABLET PO SCH (18:00)
[2018-09-01] MEDS: HYDROcodone/APAP 10/325 MG TABLET PO PRN ×2 (18:12→23:13)
[2018-09-01 19:14] VITALS: BP 122/43
[2018-09-01] MEDS: SODIUM CHLORIDE FLUSH 10ML SYR IVF SCH (19:59)
[2018-09-01] MEDS: DOCUSATE 100 MG CAPSULE PO SCH (19:59)
[2018-09-01] MEDS: LISINOPRIL 5 MG TABLET PO SCH (19:59)
[2018-09-01] MEDS: PRAVASTATIN 40 MG TABLET PO SCH (19:59)
[2018-09-01] MEDS: LEVETIRACETAM 500 MG TABLET PO SCH (19:59)
[2018-09-01] MEDS: DIAZEPAM 5 MG TABLET PO PRN (20:14)
[2018-09-02] MEDS: DIAZEPAM 5 MG TABLET PO PRN ×4 (00:49→20:23)
[2018-09-02] MEDS: POTASSIUM CHLORIDE 20 MEQ in D5%-0.45% NACL 1,000 ML IV SCH ×3 (01:51→22:06)
[2018-09-02] MEDS: CEFAZOLIN PMX 1GM/50ML 50 ML IVPB SCH (01:52)
[2018-09-02 02:54] VITALS: BP 135/50
[2018-09-02] MEDS: HYDROcodone/APAP 10/325 MG TABLET PO PRN ×5 (03:03→20:23)
[2018-09-02] MEDS: SENNA/DOCUSATE TABLET PO PRN (05:25)
[2018-09-02] MEDS: ATENOLOL 25 MG TABLET PO SCH (05:25)
[2018-09-02 06:15] LABS: BASOPHILS # (AUTO) 0.05 x10^3/uL (0-0.1); BASOPHILS % (AUTO) 0 % (0-1); EOSINOPHILS # (AUTO) 0.03 x10^3/uL (0-0.4); EOSINOPHILS % (AUTO) 0 % (1-7); LYMPHOCYTES % (AUTO) 19 % (22-44); MD NO; MEAN CORPUSCULAR HEMOGLOBIN 25.6 pg (27.0-34.8); MEAN CORPUSCULAR HGB CONC 31.2 g/dL (32.4-35.8); MEAN CORPUSCULAR VOLUME 82.1 fL (80-100); MEAN PLATELET VOLUME 7.9 fL (7.4-10.4); MONOCYTES # (AUTO) 1.25 x10^3/uL (0.2-0.8); MONOCYTES % (AUTO) 11 % (2-9); NEUTROPHILS # (AUTO) 8.19 x10^3/uL (1.8-6.8); NEUTROPHILS % (AUTO) 70 % (42-75); PLATELET COUNT 349 x10^3/uL (130-400)
[2018-09-02 08:00] VITALS: BP 128/48
[2018-09-02] MEDS: PSYLLIUM PACKET PO SCH (08:01)
[2018-09-02] MEDS: LEVETIRACETAM 500 MG TABLET PO SCH ×2 (08:01→20:22)
[2018-09-02] MEDS: CALCIUM/VITAMIN D3 250-125 TABLET PO SCH ×3 (08:01→16:14)
[2018-09-02] MEDS: CITALOPRAM 10 MG TABLET PO SCH (08:02)
[2018-09-02] MEDS: DOCUSATE 100 MG CAPSULE PO SCH ×2 (08:02→20:23)
[2018-09-02] MEDS: ISOSORBIDE MONONITRATE ER 30 MG TABLET PO SCH (08:02)
[2018-09-02] MEDS: SODIUM CHLORIDE FLUSH 10ML SYR IVF SCH ×2 (08:05→20:27)
[2018-09-02] MEDS: HYDROCHLOROTHIAZIDE 25 MG TABLET PO SCH (08:05)
[2018-09-02] MEDS: LISINOPRIL 5 MG TABLET PO SCH ×2 (08:05→20:22)
[2018-09-02] MEDS ORDERED: MULTIVITAMINS/MINERALS TABLET PO SCH (09:00)
[2018-09-02] MEDS ORDERED: ASCORBIC ACID 500 MG TABLET PO SCH (09:00)
[2018-09-02] MEDS: POLYETHYLENE GLYCOL 17 GM PACKET PO PRN (12:11)
[2018-09-02 14:00] VITALS: BP 118/51
[2018-09-02] MEDS: KETOROLAC 30 MG/1 ML IV SCH (16:14)
[2018-09-02 19:23] VITALS: BP 126/46
[2018-09-02] MEDS: PRAVASTATIN 40 MG TABLET PO SCH (20:25)
[2018-09-03] MEDS: KETOROLAC 30 MG/1 ML IV SCH ×2 (01:13→08:03)
[2018-09-03 01:54] VITALS: BP 104/43
[2018-09-03] MEDS: HYDROcodone/APAP 10/325 MG TABLET PO PRN ×2 (05:26→15:20)
[2018-09-03] MEDS: ATENOLOL 25 MG TABLET PO SCH (05:26)
[2018-09-03] MEDS: SENNA/DOCUSATE TABLET PO PRN (05:26)
[2018-09-03 06:15] LABS: MEAN CORPUSCULAR HEMOGLOBIN 25.7 pg (27.0-34.8); MEAN CORPUSCULAR HGB CONC 31.6 g/dL (32.4-35.8); MEAN CORPUSCULAR VOLUME 81.3 fL (80-100); MEAN PLATELET VOLUME 7.7 fL (7.4-10.4); PLATELET COUNT 253 x10^3/uL (130-400); RED BLOOD COUNT 3.08 x10^6/uL (3.82-5.3); RED CELL DISTRIBUTION WIDTH 17.6 % (9.6-15.2)
[2018-09-03 06:30] LABS: BASOPHILS # (AUTO) 0.03 x10^3/uL (0-0.1); BASOPHILS % (AUTO) 0 % (0-1); EOSINOPHILS # (AUTO) 0.27 x10^3/uL (0-0.4); EOSINOPHILS % (AUTO) 3 % (1-7); LYMPHOCYTES # (AUTO) 2.12 x10^3/uL (1-3.4); LYMPHOCYTES % (AUTO) 26 % (22-44); MD SCAN; MONOCYTES # (AUTO) 0.97 x10^3/uL (0.2-0.8); MONOCYTES % (AUTO) 12 % (2-9); NEUTROPHILS # (AUTO) 4.71 x10^3/uL (1.8-6.8); NEUTROPHILS % (AUTO) 58 % (42-75)
[2018-09-03] MEDS: DIAZEPAM 5 MG TABLET PO PRN ×2 (07:25→17:41)
[2018-09-03 07:30] VITALS: BP 127/50
[2018-09-03] MEDS: CALCIUM/VITAMIN D3 250-125 TABLET PO SCH ×3 (08:02→16:38)
[2018-09-03] MEDS: ISOSORBIDE MONONITRATE ER 30 MG TABLET PO SCH (08:02)
[2018-09-03] MEDS: DOCUSATE 100 MG CAPSULE PO SCH ×2 (08:02→19:59)
[2018-09-03] MEDS: HYDROCHLOROTHIAZIDE 25 MG TABLET PO SCH (08:02)
[2018-09-03] MEDS: CITALOPRAM 10 MG TABLET PO SCH (08:02)
[2018-09-03] MEDS: CLOPIDOGREL 75 MG TABLET PO SCH (08:03)
[2018-09-03] MEDS: PSYLLIUM PACKET PO SCH (08:03)
[2018-09-03] MEDS: LEVETIRACETAM 500 MG TABLET PO SCH ×2 (08:03→19:58)
[2018-09-03] MEDS: LISINOPRIL 5 MG TABLET PO SCH ×2 (08:03→19:55)
[2018-09-03] MEDS: SODIUM CHLORIDE FLUSH 10ML SYR IVF SCH ×2 (08:04→19:59)
[2018-09-03] MEDS: POTASSIUM CHLORIDE 20 MEQ in D5%-0.45% NACL 1,000 ML IV SCH ×2 (08:12→18:18)
[2018-09-03 13:35] VITALS: BP 118/39
[2018-09-03 19:02] VITALS: BP 168/55
[2018-09-03] MEDS: OXYcodone IR 5MG TABLET PO PRN (19:55)
[2018-09-03] MEDS: PRAVASTATIN 40 MG TABLET PO SCH (19:55)
[2018-09-04 00:57] VITALS: BP 135/50
[2018-09-04] MEDS: OXYcodone IR 5MG TABLET PO PRN ×5 (03:34→23:48)
[2018-09-04] MEDS: POTASSIUM CHLORIDE 20 MEQ in D5%-0.45% NACL 1,000 ML IV SCH ×2 (04:24→15:52)
[2018-09-04 05:13] VITALS: BP 151/52
[2018-09-04] MEDS: ATENOLOL 25 MG TABLET PO SCH (05:17)
[2018-09-04 05:50] LABS: BASOPHILS % (AUTO) 0 % (0-1); EOSINOPHILS % (AUTO) 0 % (1-7); LYMPHOCYTES # (AUTO) 0.79 x10^3/uL (1-3.4); LYMPHOCYTES % (AUTO) 10 % (22-44); MD NO; MEAN CORPUSCULAR HEMOGLOBIN 25.9 pg (27.0-34.8); MEAN CORPUSCULAR HGB CONC 31.6 g/dL (32.4-35.8); MEAN CORPUSCULAR VOLUME 81.8 fL (80-100); MEAN PLATELET VOLUME 8.4 fL (7.4-10.4); MONOCYTES % (AUTO) 4 % (2-9); NEUTROPHILS # (AUTO) 6.54 x10^3/uL (1.8-6.8); NEUTROPHILS % (AUTO) 86 % (42-75); PLATELET COUNT 307 x10^3/uL (130-400); RED CELL DISTRIBUTION WIDTH 17.1 % (9.6-15.2)
[2018-09-04 06:35] VITALS: BP 133/62
[2018-09-04] MEDS: ISOSORBIDE MONONITRATE ER 30 MG TABLET PO SCH (09:01)
[2018-09-04] MEDS: LISINOPRIL 5 MG TABLET PO SCH ×2 (09:01→20:12)
[2018-09-04] MEDS: HYDROCHLOROTHIAZIDE 25 MG TABLET PO SCH (09:01)
[2018-09-04] MEDS: CLOPIDOGREL 75 MG TABLET PO SCH (09:01)
[2018-09-04] MEDS: LEVETIRACETAM 500 MG TABLET PO SCH ×2 (09:01→20:05)
[2018-09-04] MEDS: CITALOPRAM 10 MG TABLET PO SCH (09:01)
[2018-09-04] MEDS: DOCUSATE 100 MG CAPSULE PO SCH ×2 (09:02→20:05)
[2018-09-04] MEDS: CALCIUM/VITAMIN D3 250-125 TABLET PO SCH ×3 (09:02→17:05)
[2018-09-04] MEDS: SODIUM CHLORIDE FLUSH 10ML SYR IVF SCH ×2 (09:02→20:04)
[2018-09-04] MEDS: PSYLLIUM PACKET PO SCH (09:05)
[2018-09-04] MEDS: SCOPOLAMINE PATCH, 1.5MG PATCH.TD72 TD SCH (12:08)
[2018-09-04] MEDS: DIAZEPAM 5 MG TABLET PO PRN (12:10)
[2018-09-04 13:20] VITALS: BP 108/43
[2018-09-04 19:16] VITALS: BP 117/51
[2018-09-04] MEDS: PRAVASTATIN 40 MG TABLET PO SCH (20:04)
[2018-09-05] MEDS: POTASSIUM CHLORIDE 20 MEQ in D5%-0.45% NACL 1,000 ML IV SCH ×2 (00:36→10:42)
[2018-09-05 02:01] VITALS: BP 150/59
[2018-09-05 05:16] LABS: BASOPHILS # (AUTO) 0.02 x10^3/uL (0-0.1); BASOPHILS % (AUTO) 0 % (0-1); EOSINOPHILS # (AUTO) 0.09 x10^3/uL (0-0.4); EOSINOPHILS % (AUTO) 1 % (1-7); LYMPHOCYTES # (AUTO) 2.45 x10^3/uL (1-3.4); LYMPHOCYTES % (AUTO) 30 % (22-44); MD NO; MEAN CORPUSCULAR HEMOGLOBIN 25.4 pg (27.0-34.8); MEAN CORPUSCULAR HGB CONC 31.2 g/dL (32.4-35.8); MEAN CORPUSCULAR VOLUME 81.5 fL (80-100); MONOCYTES # (AUTO) 0.81 x10^3/uL (0.2-0.8); MONOCYTES % (AUTO) 10 % (2-9); NEUTROPHILS # (AUTO) 4.79 x10^3/uL (1.8-6.8); NEUTROPHILS % (AUTO) 59 % (42-75); PLATELET COUNT 286 x10^3/uL (130-400); RED BLOOD COUNT 2.85 x10^6/uL (3.82-5.3)
[2018-09-05] MEDS: ATENOLOL 25 MG TABLET PO SCH (05:23)
[2018-09-05] MEDS: OXYcodone IR 5MG TABLET PO PRN ×4 (05:23→16:55)
[2018-09-05 05:28] VITALS: BP 157/60
[2018-09-05] MEDS: DIAZEPAM 5 MG TABLET PO PRN (06:46)
[2018-09-05 07:11] VITALS: BP 155/67
[2018-09-05] MEDS: CALCIUM/VITAMIN D3 250-125 TABLET PO SCH ×3 (09:31→17:00)
[2018-09-05] MEDS: DOCUSATE 100 MG CAPSULE PO SCH (09:32)
[2018-09-05] MEDS: LEVETIRACETAM 500 MG TABLET PO SCH (09:32)
[2018-09-05] MEDS: CITALOPRAM 10 MG TABLET PO SCH (09:32)
[2018-09-05] MEDS: PSYLLIUM PACKET PO SCH (09:32)
[2018-09-05] MEDS: HYDROCHLOROTHIAZIDE 25 MG TABLET PO SCH (09:32)
[2018-09-05] MEDS: ISOSORBIDE MONONITRATE ER 30 MG TABLET PO SCH (09:32)
[2018-09-05] MEDS: SENNA/DOCUSATE TABLET PO PRN (09:33)
[2018-09-05] MEDS: LISINOPRIL 5 MG TABLET PO SCH (09:33)
[2018-09-05] MEDS: POLYETHYLENE GLYCOL 17 GM PACKET PO PRN (09:33)
[2018-09-05] MEDS: CLOPIDOGREL 75 MG TABLET PO SCH (09:33)
[2018-09-05] MEDS: SODIUM CHLORIDE FLUSH 10ML SYR IVF SCH (09:55)
[2018-09-05 13:43] VITALS: BP 113/72
[2018-09-05] MEDS ORDERED: OXYC5CAP2 PO (15:19)
== END 2018-09-05 17:05 | DRG 470 ==
LOC: ORIP 07:26 → 4NOR 12:39
PROVIDERS: ADMIT Orthopaedic Surgery Orthopaedic Surgery of the Spine; ATTEND Orthopaedic Surgery Orthopaedic Surgery of the Spine
PROC: 0SRB04A Replacement of Left Hip Joint with Ceramic on Polyethylene Synthetic Substitute, Uncemented, Open Approach (ICD-10-PCS; principal; 2018-09-01 08:00)
DX: M16.12 Unilateral primary osteoarthritis, left hip (principal); E78.5 Hyperlipidemia, unspecified; J43.9 Emphysema, unspecified; Z88.2 Allergy status to sulfonamides; Z88.0 Allergy status to penicillin; Z87.891 Personal history of nicotine dependence; Z88.5 Allergy status to narcotic agent; I25.2 Old myocardial infarction
CPT/HCPCS: 36415; 85025; 86850; 86900; G0378; J0690; J1100; J1170; J1885; J2405; J2704; J3010; J3360; J3370; J3480; C1776; J2370; J7120; Q0163

== ENCOUNTER 2019-01-26 14:45 | Inpatient (IN) | payer MEDICARE ==
[~2019-01-26] VITALS: Ht 152.4 cm; Wt 53.0 kg
[~2019-01-26 14:45] MED LIST changes: -BUPIVACAINE/EPI 0.5% 1:200K ONE; -FENTANYL PF 250 MCG/5ML ONE; -HYDR-3307 PO; +HYDR-36 PO; +OXYC5CAP2 PO; -THROMBIN 20,000 UNIT VIAL TP ONE; -TRANEXAMIC ACID 100 MG/ML, 10ML ONE; -VANCOMYCIN 1,000 MG ONE
[2019-01-26] MEDS ORDERED: ASPIRIN 81 MG TABLET CHEW PO ONE (15:00)
[2019-01-26] MEDS ORDERED: SODIUM CHLORIDE 0.9% 1,000ML IVBOLUS ONE (15:30)
[2019-01-26] MEDS ORDERED: MELO7.5T31 PO (15:34)
[2019-01-26 15:43] LABS: ALANINE AMINOTRANSFERASE 33 U/L (12-78); ALBUMIN 3.3 g/dL (3.4-5.0); ANION GAP 11 mmol/L (5-15); CALCIUM 8.3 mg/dL (8.5-10.1); CHLORIDE 102 mmol/L (98-107); CREATININE 1.04 mg/dL (0.55-1.02)
[2019-01-26 15:47] LABS: ALKALINE PHOSPHATASE 92 U/L (45-117); BILIRUBIN,TOTAL 0.5 mg/dL (0.2-1.0); TOTAL PROTEIN 6.9 g/dL (6.4-8.2); TROPONIN I 0.021 ng/mL (0.000-0.045)
[2019-01-26] MEDS ORDERED: ASPIRIN 81 MG TABLET CHEW ONE (15:51)
[2019-01-26] MEDS ORDERED: FENTANYL PF 100 MCG/2ML ONE (15:55)
[2019-01-26] MEDS ORDERED: FENTANYL PF 100 MCG/2ML IVPush ONE (16:00)
--- NOTE | 2019-01-26 16:00 | NUR ---
THIS IS AN 87 YEAR OLD FEMALE WITH C/O SOB, CHEST PAIN, BACK PAIN 8/10 X 1WEEK. SHE DENIES PAIN R/T BREATHING. RESPIRATIONS EVEN AND UNLABORED. SHE IS IN NO ACUTE DISTRESS. CURRENT RHYTHM IS NSR WITH BUNDLE BRANCH BLOCK. HR 105-115. PATIENT RESTING ON GURNEY AND DENIES FURTHER NEEDS AT THIS TIME. WILL CONTINUE TO MONITOR. CALL LIGHT IS IN REACH.
[2019-01-26 16:13] LABS: MD YES; MEAN CORPUSCULAR VOLUME 68.2 fL (80-100); MEAN PLATELET VOLUME 8.2 fL (7.4-10.4); PLATELET COUNT 370 x10^3/uL (130-400); RED BLOOD COUNT 3.45 x10^6/uL (3.82-5.3)
[2019-01-26 16:14] LABS: MEAN CORPUSCULAR HGB CONC 29.3 g/dL (32.4-35.8)
[2019-01-26 16:26] LABS: ANISOCYTOSIS 2+; BAND#(MANUAL) 0.08 x10^3/uL; BANDS%(MANUAL) 1 % (0-7); LYMPH#(MANUAL) 1.82 x10^3/uL (1-3.4); LYMPHS% (MANUAL) 24 % (22-44); MICROCYTOSIS 1+; MONOS#(MANUAL) 0.23 x10^3/uL (0.3-2.7); MONOS% (MANUAL) 3 % (2-9); OTHER CELLS # (MANUAL) 0.15 x10^3/uL (0-0); OTHER CELLS % (MANUAL) 2 % (0-0); SEG#(MANUAL) 5.32 x10^3/uL (1.8-6.8); SEGS% (MANUAL) 70 % (42-75)
[2019-01-26 16:27] LABS: <PLATELET ESTIMATE> ADEQUATE; <PLT MORPHOLOGY> NORMAL PLT MORPH; HYPOCHROMIA 1+; OVALOCYTES 1+; POLYCHROMASIA 1+; TARGET CELLS 1+
[2019-01-26] MEDS ORDERED: OMNIPAQUE 350 MG/ML, 100ML BOTTLE ONE (17:28)
--- NOTE | 2019-01-26 17:30 | NUR ---
PT CURRENTLY RESTING ON [employer]. NAD NOTED. SKIN PWD. RESP EVEN UNLABORED. PT NST 110'S. PT AO X 4. SKIN SLIGHTLY PALE, WARM AND DRY. RESP EVEN AND UNLABORED.
[2019-01-26] MEDS ORDERED: ONDANSETRON ODT 4 MG PO PRN (18:00)
[2019-01-26] MEDS ORDERED: ONDANSETRON 2MG/ML, 2ML IVPush PRN (18:00)
[2019-01-26] MEDS ORDERED: GUAIFENESIN/DM 200-20MG, 10ML UDC PO PRN (18:00)
[2019-01-26] MEDS ORDERED: hydrALAzine 20 MG/ML, 1ML IVPush PRN (18:00)
[2019-01-26] MEDS ORDERED: ASA/APAP/ CAFFEINE TABLET PO PRN (18:00)
[2019-01-26] MEDS ORDERED: POLYETHYLENE GLYCOL 17 GM PACKET PO PRN (18:00)
[2019-01-26] MEDS ORDERED: LACTATED RINGERS 1,000 ML IV ONE (18:00)
--- NOTE | 2019-01-26 18:00 | NUR ---
PT CURRENTLY RESTING ON GURNEY. NAD NOTED. SKIN SLIGHTLY PALE, WARM AND DRY. RESP EVEN AND UNLABORED. BLOOD CONSENT OBTAINED AT THIS TIME. PT AWARE THAT SHE IS WAITING FOR RBC'S AND ADMISSION. FAMILY AT BEDSIDE. WILL CONT TO MONITOR PT.
[2019-01-26 18:04] VITALS: BP 141/65
[2019-01-26 18:20] VITALS: BP 154/59
[2019-01-26 18:24] LABS: MD YES; MEAN CORPUSCULAR HEMOGLOBIN 19.9 pg (27.0-34.8); MEAN CORPUSCULAR VOLUME 68.7 fL (80-100); MEAN PLATELET VOLUME 8.2 fL (7.4-10.4); PLATELET COUNT 336 x10^3/uL (130-400); RED BLOOD COUNT 3.46 x10^6/uL (3.82-5.3); RED CELL DISTRIBUTION WIDTH 20.1 % (9.6-15.2)
[2019-01-26 18:31] LABS: LYMPH#(MANUAL) 1.52 x10^3/uL (1-3.4); LYMPHS% (MANUAL) 19 % (22-44); MONOS#(MANUAL) 0.32 x10^3/uL (0.3-2.7); MONOS% (MANUAL) 4 % (2-9); SEG#(MANUAL) 5.68 x10^3/uL (1.8-6.8); SEGS% (MANUAL) 71 % (42-75)
[2019-01-26 18:32] LABS: ANISOCYTOSIS 2+; HYPOCHROMIA 1+; MICROCYTOSIS 1+; OTHER CELLS # (MANUAL) 0.48 x10^3/uL (0-0); OTHER CELLS % (MANUAL) 6 % (0-0); OVALOCYTES 1+; POLYCHROMASIA 1+; TARGET CELLS 1+
[2019-01-26 18:33] LABS: <PLATELET ESTIMATE> ADEQUATE; <PLT MORPHOLOGY> NORMAL PLT MORPH
--- NOTE | 2019-01-26 18:36 | NUR ---
BLOOD STILL INFUSING AT TIME OF TRANSFER.
[2019-01-26 18:50] VITALS: BP 153/79
[2019-01-26] MEDS ORDERED: ALBUTEROL SULFATE 2.5 MG/3 ML ONE (19:09)
[2019-01-26] MEDS ORDERED: ALBUTEROL SULFATE 2.5 MG/3 ML NPPB PRN (19:30)
[2019-01-26 19:45] VITALS: BP 150/67
[2019-01-26] MEDS: LEVETIRACETAM 500 MG TABLET PO SCH (19:45)
[2019-01-26] MEDS: PRAVASTATIN 40 MG TABLET PO SCH (19:45)
[2019-01-26] MEDS: LISINOPRIL 5 MG TABLET PO SCH (19:45)
[2019-01-26] MEDS: NITROGLYCERIN SINGLE TAB 0.4 MG SL PRN ×3 (19:48→20:12)
[2019-01-26] MEDS: morphine SULFATE 10 MG/ML, 1ML IVPush PRN ×2 (20:14→20:56)
[2019-01-26 20:30] VITALS: BP 152/77
[2019-01-26] MEDS ORDERED: FUROSEMIDE 20 MG/2 ML IV ONE (20:30)
[2019-01-26 22:33] LABS: MD YES
[2019-01-26 22:35] LABS: TROPONIN I 0.043 ng/mL (0.000-0.045)
[2019-01-26 22:50] LABS: MICROSCOPIC AUTO
[2019-01-26 22:56] LABS: MEAN CORPUSCULAR VOLUME 70.9 fL (80-100); MEAN PLATELET VOLUME 7.7 fL (7.4-10.4); PLATELET COUNT 303 x10^3/uL (130-400); RED BLOOD COUNT 3.68 x10^6/uL (3.82-5.3)
[2019-01-26] MEDS ORDERED: HYDROcodone/APAP 10/325 MG TABLET PO PRN (23:00)
[2019-01-26] MEDS: HYDROcodone/APAP 10/325 MG TABLET PO PRN (23:18)
[2019-01-26] MEDS: BACLOFEN 10 MG TABLET PO PRN (23:19)
[2019-01-26 23:20] LABS: BAND#(MANUAL) 0.07 x10^3/uL; BANDS%(MANUAL) 1 % (0-7); LYMPH#(MANUAL) 0.48 x10^3/uL (1-3.4); LYMPHS% (MANUAL) 7 % (22-44); SEG#(MANUAL) 5.92 x10^3/uL (1.8-6.8); SEGS% (MANUAL) 87 % (42-75)
[2019-01-26 23:23] LABS: NRBC % (MANUAL) 1 % (0-1); OTHER CELLS # (MANUAL) 0.34 x10^3/uL (0-0); OTHER CELLS % (MANUAL) 5 % (0-0)
[2019-01-26 23:24] LABS: ANISOCYTOSIS 2+; HYPOCHROMIA 1+; MICROCYTOSIS 1+; OVALOCYTES 1+; POLYCHROMASIA 1+; TARGET CELLS 1+
[2019-01-26 23:25] LABS: ECHINOCYTES 1+; TEAR DROPS 1+
[2019-01-26 23:26] LABS: <PLATELET ESTIMATE> ADEQUATE; <PLT MORPHOLOGY> NORMAL PLT MORPH
[2019-01-26 23:27] LABS: MEAN CORPUSCULAR HGB CONC 29.6 g/dL (32.4-35.8)
[2019-01-27 01:32] VITALS: BP 105/50
[2019-01-27 05:26] LABS: BASOPHILS # (AUTO) 0.01 x10^3/uL (0-0.1); BASOPHILS % (AUTO) 0 % (0-1); EOSINOPHILS # (AUTO) 0.12 x10^3/uL (0-0.4); EOSINOPHILS % (AUTO) 2 % (1-7); LYMPHOCYTES # (AUTO) 2.08 x10^3/uL (1-3.4); LYMPHOCYTES % (AUTO) 29 % (22-44); MD NO; MEAN CORPUSCULAR HEMOGLOBIN 21.2 pg (27.0-34.8); MEAN CORPUSCULAR VOLUME 70.5 fL (80-100); MEAN PLATELET VOLUME 8.1 fL (7.4-10.4); MONOCYTES # (AUTO) 1.26 x10^3/uL (0.2-0.8); MONOCYTES % (AUTO) 17 % (2-9); NEUTROPHILS # (AUTO) 3.81 x10^3/uL (1.8-6.8); NEUTROPHILS % (AUTO) 52 % (42-75); PLATELET COUNT 273 x10^3/uL (130-400); RED BLOOD COUNT 3.41 x10^6/uL (3.82-5.3); RED CELL DISTRIBUTION WIDTH 19.8 % (9.6-15.2)
[2019-01-27 05:28] LABS: ALANINE AMINOTRANSFERASE 29 U/L (12-78); ALBUMIN 2.8 g/dL (3.4-5.0); ANION GAP 7 mmol/L (5-15); CALCIUM 7.7 mg/dL (8.5-10.1); CHLORIDE 106 mmol/L (98-107); CREATININE 0.93 mg/dL (0.55-1.02)
[2019-01-27 05:30] LABS: ALKALINE PHOSPHATASE 76 U/L (45-117); BILIRUBIN,TOTAL 1.1 mg/dL (0.2-1.0); TOTAL PROTEIN 5.8 g/dL (6.4-8.2); TROPONIN I 0.042 ng/mL (0.000-0.045)
[2019-01-27 07:23] VITALS: BP 107/54
[2019-01-27] MEDS: ATENOLOL 25 MG TABLET PO SCH (08:51)
[2019-01-27] MEDS: ISOSORBIDE MONONITRATE ER 30 MG TABLET PO SCH (08:51)
[2019-01-27] MEDS: LEVETIRACETAM 500 MG TABLET PO SCH ×2 (08:51→21:51)
[2019-01-27] MEDS: CITALOPRAM 10 MG TABLET PO SCH (08:51)
[2019-01-27] MEDS: LISINOPRIL 5 MG TABLET PO SCH ×2 (08:51→21:00)
[2019-01-27] MEDS ORDERED: CLOPIDOGREL 75 MG TABLET PO SCH (09:00)
[2019-01-27] MEDS ORDERED: HYDROCHLOROTHIAZIDE 12.5 MG CAPSULE PO SCH (09:00)
[2019-01-27] MEDS: HYDROcodone/APAP 10/325 MG TABLET PO PRN ×3 (10:27→21:54)
[2019-01-27] MEDS: BACLOFEN 10 MG TABLET PO PRN (12:31)
[2019-01-27 12:55] VITALS: BP 124/52
[2019-01-27] MEDS: PANTOPRAZOLE 20MG TABLET PO SCH (15:34)
[2019-01-27] MEDS ORDERED: MORPHINE SULFATE 4 MG/ML, 1ML ONE (16:25)
[2019-01-27] MEDS ORDERED: MORPHINE SULFATE 4 MG/ML, 1ML IVPush ONE (16:30)
[2019-01-27 18:26] VITALS: BP 92/37
[2019-01-27 20:49] VITALS: BP 102/46
[2019-01-27] MEDS: PRAVASTATIN 40 MG TABLET PO SCH (21:51)
[2019-01-28] VITALS (10 sets, daily range): BP systolic 91–119; BP diastolic 30–58
[2019-01-28] MEDS: PANTOPRAZOLE 20MG TABLET PO SCH ×2 (04:06→16:30)
[2019-01-28] MEDS: HYDROcodone/APAP 10/325 MG TABLET PO PRN ×5 (04:06→20:51)
[2019-01-28 05:34] LABS: MEAN CORPUSCULAR HEMOGLOBIN 20.9 pg (27.0-34.8); MEAN CORPUSCULAR VOLUME 71.2 fL (80-100); MEAN PLATELET VOLUME 8.4 fL (7.4-10.4); PLATELET COUNT 301 x10^3/uL (130-400); RED CELL DISTRIBUTION WIDTH 20.1 % (9.6-15.2)
[2019-01-28 05:35] LABS: MEAN CORPUSCULAR HGB CONC 29.3 g/dL (32.4-35.8)
[2019-01-28 05:41] LABS: CHLORIDE 106 mmol/L (98-107)
[2019-01-28 05:54] LABS: % IRON SATURATION 4 % (20-55); ALANINE AMINOTRANSFERASE 26 U/L (12-78); ALBUMIN 2.8 g/dL (3.4-5.0); ALKALINE PHOSPHATASE 78 U/L (45-117); ANION GAP 7 mmol/L (5-15); BILIRUBIN,TOTAL 0.8 mg/dL (0.2-1.0); CREATININE 1.35 mg/dL (0.55-1.02); IRON LEVEL 14 mcg/dL (50-170); TOTAL IRON BINDING CAPACITY 347 mcg/dL (250-450); TOTAL PROTEIN 6.1 g/dL (6.4-8.2); TRANSFERRIN 269 mg/dL (200-360)
[2019-01-28 06:05] LABS: BASOPHILS # (AUTO) 0.01 x10^3/uL (0-0.1); BASOPHILS % (AUTO) 0 % (0-1); EOSINOPHILS # (AUTO) 0.31 x10^3/uL (0-0.4); EOSINOPHILS % (AUTO) 4 % (1-7); LYMPHOCYTES # (AUTO) 2.55 x10^3/uL (1-3.4); LYMPHOCYTES % (AUTO) 29 % (22-44); MD SCAN; MONOCYTES # (AUTO) 0.93 x10^3/uL (0.2-0.8); MONOCYTES % (AUTO) 11 % (2-9); NEUTROPHILS # (AUTO) 4.93 x10^3/uL (1.8-6.8); NEUTROPHILS % (AUTO) 57 % (42-75)
[2019-01-28] MEDS: SUCRALFATE 1 GM TABLET PO SCH ×4 (08:00→20:51)
[2019-01-28] MEDS: ATENOLOL 25 MG TABLET PO SCH (08:00)
[2019-01-28] MEDS: CITALOPRAM 10 MG TABLET PO SCH (08:00)
[2019-01-28] MEDS: ISOSORBIDE MONONITRATE ER 30 MG TABLET PO SCH (08:00)
[2019-01-28] MEDS: LEVETIRACETAM 500 MG TABLET PO SCH ×2 (08:00→20:51)
[2019-01-28] MEDS: BACLOFEN 10 MG TABLET PO PRN (16:34)
[2019-01-28] MEDS: PRAVASTATIN 40 MG TABLET PO SCH (20:51)
[2019-01-29 00:32] VITALS: BP 117/59
[2019-01-29] MEDS: PANTOPRAZOLE 20MG TABLET PO SCH ×2 (04:44→16:12)
[2019-01-29 05:05] LABS: MEAN CORPUSCULAR HEMOGLOBIN 22.3 pg (27.0-34.8); MEAN CORPUSCULAR VOLUME 74.6 fL (80-100); MEAN PLATELET VOLUME 8.5 fL (7.4-10.4); PLATELET COUNT 263 x10^3/uL (130-400); RED BLOOD COUNT 3.79 x10^6/uL (3.82-5.3); RED CELL DISTRIBUTION WIDTH 22.7 % (9.6-15.2)
[2019-01-29 05:10] LABS: MEAN CORPUSCULAR HGB CONC 29.9 g/dL (32.4-35.8)
[2019-01-29 05:11] LABS: ANION GAP 7 mmol/L (5-15); CALCIUM 7.7 mg/dL (8.5-10.1); CHLORIDE 109 mmol/L (98-107)
[2019-01-29 05:13] LABS: CREATININE 1.42 mg/dL (0.55-1.02)
[2019-01-29 05:48] LABS: BASOPHILS # (AUTO) 0.02 x10^3/uL (0-0.1); BASOPHILS % (AUTO) 0 % (0-1); EOSINOPHILS # (AUTO) 0.32 x10^3/uL (0-0.4); EOSINOPHILS % (AUTO) 5 % (1-7); LYMPHOCYTES % (AUTO) 27 % (22-44); MD SCAN; MONOCYTES # (AUTO) 0.87 x10^3/uL (0.2-0.8); MONOCYTES % (AUTO) 12 % (2-9); NEUTROPHILS # (AUTO) 4.07 x10^3/uL (1.8-6.8); NEUTROPHILS % (AUTO) 56 % (42-75)
[2019-01-29] MEDS: SUCRALFATE 1 GM TABLET PO SCH ×4 (06:38→20:06)
[2019-01-29] MEDS: HYDROcodone/APAP 10/325 MG TABLET PO PRN ×3 (06:38→20:07)
[2019-01-29 08:36] VITALS: BP 127/68
[2019-01-29] MEDS: CITALOPRAM 10 MG TABLET PO SCH (09:01)
[2019-01-29] MEDS: ISOSORBIDE MONONITRATE ER 30 MG TABLET PO SCH (09:01)
[2019-01-29] MEDS: SODIUM CHLORIDE 0.9% 1,000 ML IV SCH ×2 (09:01→18:23)
[2019-01-29] MEDS: ATENOLOL 25 MG TABLET PO SCH (09:01)
[2019-01-29] MEDS: LEVETIRACETAM 500 MG TABLET PO SCH ×2 (09:01→20:06)
[2019-01-29 12:56] LABS: OCCULT BLOOD NEGATIVE (NEGATIVE)
[2019-01-29 13:40] VITALS: BP 109/67
[2019-01-29 14:33] LABS: CREATININE,URINE RANDOM 99.6 mg/dL
[2019-01-29 19:25] VITALS: BP 115/66
[2019-01-29] MEDS: PRAVASTATIN 40 MG TABLET PO SCH (20:06)
[2019-01-29] MEDS: IBUPROFEN 600 MG TABLET PO PRN ×2 (22:33→22:42)
[2019-01-30 02:11] VITALS: BP 102/60
[2019-01-30] MEDS: HYDROcodone/APAP 10/325 MG TABLET PO PRN ×4 (04:44→22:16)
[2019-01-30 05:25] LABS: MEAN CORPUSCULAR HEMOGLOBIN 22.1 pg (27.0-34.8); MEAN CORPUSCULAR VOLUME 75.3 fL (80-100); MEAN PLATELET VOLUME 8.6 fL (7.4-10.4); PLATELET COUNT 249 x10^3/uL (130-400); RED BLOOD COUNT 4.05 x10^6/uL (3.82-5.3); RED CELL DISTRIBUTION WIDTH 22.7 % (9.6-15.2)
[2019-01-30 05:32] LABS: ANION GAP 6 mmol/L (5-15); CALCIUM 7.7 mg/dL (8.5-10.1); CHLORIDE 113 mmol/L (98-107); CREATININE 1.53 mg/dL (0.55-1.02)
[2019-01-30 05:53] LABS: MEAN CORPUSCULAR HGB CONC 29.4 g/dL (32.4-35.8)
[2019-01-30 05:54] LABS: BASOPHILS # (AUTO) 0.01 x10^3/uL (0-0.1); BASOPHILS % (AUTO) 0 % (0-1); EOSINOPHILS # (AUTO) 0.26 x10^3/uL (0-0.4); EOSINOPHILS % (AUTO) 4 % (1-7); LYMPHOCYTES # (AUTO) 2.28 x10^3/uL (1-3.4); LYMPHOCYTES % (AUTO) 36 % (22-44); MD SCAN; MONOCYTES # (AUTO) 0.58 x10^3/uL (0.2-0.8); MONOCYTES % (AUTO) 9 % (2-9); NEUTROPHILS # (AUTO) 3.14 x10^3/uL (1.8-6.8); NEUTROPHILS % (AUTO) 50 % (42-75)
[2019-01-30] MEDS: PANTOPRAZOLE 20MG TABLET PO SCH ×2 (06:02→16:15)
[2019-01-30 07:30] VITALS: BP 107/64
[2019-01-30] MEDS: SUCRALFATE 1 GM TABLET PO SCH ×4 (07:52→20:11)
[2019-01-30] MEDS: ATENOLOL 25 MG TABLET PO SCH (08:00)
[2019-01-30] MEDS: LEVETIRACETAM 500 MG TABLET PO SCH ×2 (08:00→20:10)
[2019-01-30] MEDS: ISOSORBIDE MONONITRATE ER 30 MG TABLET PO SCH (08:00)
[2019-01-30] MEDS: CITALOPRAM 10 MG TABLET PO SCH (08:00)
[2019-01-30] MEDS: ACETAMINOPHEN 325 MG TABLET PO PRN ×2 (08:13→20:10)
[2019-01-30] MEDS ORDERED: PHARMACY MAY ADJ FOR RENAL FX MC PRN (11:30)
[2019-01-30] MEDS ORDERED: FUROSEMIDE 20 MG/2 ML IV ONE (11:30)
[2019-01-30 12:42] VITALS: BP 104/67
[2019-01-30 20:07] VITALS: BP 128/67
[2019-01-30] MEDS: PRAVASTATIN 40 MG TABLET PO SCH (20:10)
[2019-01-31 00:48] VITALS: BP 130/67
[2019-01-31 05:39] LABS: ANION GAP 6 mmol/L (5-15); CHLORIDE 113 mmol/L (98-107)
[2019-01-31 05:41] LABS: CREATININE 1.55 mg/dL (0.55-1.02); MEAN CORPUSCULAR HEMOGLOBIN 22.7 pg (27.0-34.8); PLATELET COUNT 238 x10^3/uL (130-400); RED BLOOD COUNT 3.87 x10^6/uL (3.82-5.3); RED CELL DISTRIBUTION WIDTH 23.8 % (9.6-15.2)
[2019-01-31 06:02] LABS: MEAN CORPUSCULAR HGB CONC 29.8 g/dL (32.4-35.8)
[2019-01-31 06:05] LABS: ANISOCYTOSIS 2+; BASOPHILS % (AUTO) 0 % (0-1); ECHINOCYTES 1+; EOSINOPHILS # (AUTO) 0.35 x10^3/uL (0-0.4); EOSINOPHILS % (AUTO) 5 % (1-7); LYMPHOCYTES # (AUTO) 2.18 x10^3/uL (1-3.4); LYMPHOCYTES % (AUTO) 34 % (22-44); MD MORPH REVIEW ONLY; MICROCYTOSIS 2+; MONOCYTES # (AUTO) 0.72 x10^3/uL (0.2-0.8); MONOCYTES % (AUTO) 11 % (2-9); NEUTROPHILS # (AUTO) 3.24 x10^3/uL (1.8-6.8); NEUTROPHILS % (AUTO) 50 % (42-75); OVALOCYTES 1+
[2019-01-31 06:07] LABS: <PLATELET ESTIMATE> ADEQUATE; <PLT MORPHOLOGY> NORMAL PLT MORPH; HYPOCHROMIA 2+
[2019-01-31] MEDS: PANTOPRAZOLE 20MG TABLET PO SCH ×2 (06:26→16:57)
[2019-01-31] MEDS: HYDROcodone/APAP 10/325 MG TABLET PO PRN ×4 (06:31→20:23)
[2019-01-31] MEDS ORDERED: FUROSEMIDE 20 MG/2 ML IV SCH (07:30)
[2019-01-31] MEDS: ISOSORBIDE MONONITRATE ER 30 MG TABLET PO SCH (09:00)
[2019-01-31 09:25] VITALS: BP 133/70
[2019-01-31] MEDS: CITALOPRAM 10 MG TABLET PO SCH (09:30)
[2019-01-31] MEDS: SUCRALFATE 1 GM TABLET PO SCH ×2 (09:30→12:03)
[2019-01-31] MEDS: ATENOLOL 25 MG TABLET PO SCH (09:30)
[2019-01-31] MEDS: LEVETIRACETAM 500 MG TABLET PO SCH ×2 (09:30→20:24)
[2019-01-31] MEDS ORDERED: FUROSEMIDE 40 MG/4 ML ONE (09:40)
[2019-01-31] MEDS: FUROSEMIDE 40 MG/4 ML IV SCH (09:42)
[2019-01-31] MEDS: ACETAMINOPHEN 325 MG TABLET PO PRN (09:42)
[2019-01-31 14:04] VITALS: BP 114/63
[2019-01-31] MEDS: SUCRALFATE 1 GM/10 ML UDC PO SCH ×2 (16:57→20:23)
[2019-01-31 19:30] VITALS: BP 113/62
[2019-01-31] MEDS: PRAVASTATIN 40 MG TABLET PO SCH (20:23)
[2019-01-31] MEDS: TRAZODONE 50MG TABLET PO PRN (23:15)
[2019-01-31 23:48] LABS: OCCULT BLOOD NEGATIVE (NEGATIVE)
[2019-02-01 01:17] VITALS: BP 125/62
[2019-02-01] MEDS: HYDROcodone/APAP 10/325 MG TABLET PO PRN ×4 (05:27→20:33)
[2019-02-01 05:39] LABS: MD YES; MEAN CORPUSCULAR HEMOGLOBIN 22.4 pg (27.0-34.8); MEAN CORPUSCULAR VOLUME 75.9 fL (80-100); MEAN PLATELET VOLUME 9.5 fL (7.4-10.4); PLATELET COUNT 203 x10^3/uL (130-400); RED BLOOD COUNT 3.57 x10^6/uL (3.82-5.3); RED CELL DISTRIBUTION WIDTH 24.2 % (9.6-15.2)
[2019-02-01 05:43] LABS: ANION GAP 4 mmol/L (5-15); CALCIUM 7.9 mg/dL (8.5-10.1); CHLORIDE 113 mmol/L (98-107); CREATININE 1.55 mg/dL (0.55-1.02)
[2019-02-01] MEDS: SUCRALFATE 1 GM/10 ML UDC PO SCH ×4 (06:06→20:34)
[2019-02-01] MEDS: METOPROLOL SUCCINATE 25 MG TAB.ER.24H PO SCH (06:06)
[2019-02-01] MEDS: PANTOPRAZOLE 20MG TABLET PO SCH ×2 (06:06→16:22)
[2019-02-01] MEDS: FUROSEMIDE 40 MG/4 ML IV SCH ×2 (06:06→16:22)
[2019-02-01 06:07] LABS: LYMPH#(MANUAL) 1.77 x10^3/uL (1-3.4); LYMPHS% (MANUAL) 30 % (22-44); SEG#(MANUAL) 3.25 x10^3/uL (1.8-6.8); SEGS% (MANUAL) 55 % (42-75)
[2019-02-01 06:08] LABS: ANISOCYTOSIS 2+; EOS#(MANUAL) 0.35 x10^3/uL (0.0-0.4); EOS% (MANUAL) 6 % (1-7); HYPOCHROMIA 2+; MICROCYTOSIS 1+; MONOS#(MANUAL) 0.53 x10^3/uL (0.3-2.7); MONOS% (MANUAL) 9 % (2-9)
[2019-02-01 06:09] LABS: <PLATELET ESTIMATE> ADEQUATE; <PLT MORPHOLOGY> NORMAL PLT MORPH; OVALOCYTES 1+
[2019-02-01 06:17] LABS: MEAN CORPUSCULAR HGB CONC 29.5 g/dL (32.4-35.8)
[2019-02-01 06:36] VITALS: BP 155/77
[2019-02-01] MEDS: ISOSORBIDE MONONITRATE ER 30 MG TABLET PO SCH (08:05)
[2019-02-01] MEDS: CITALOPRAM 10 MG TABLET PO SCH (08:05)
[2019-02-01] MEDS: LEVETIRACETAM 500 MG TABLET PO SCH ×2 (08:05→20:34)
[2019-02-01] MEDS ORDERED: LIDOCAINE 1%, 10ML ONE (11:30)
[2019-02-01 13:38] VITALS: BP 109/57
[2019-02-01] MEDS: BACLOFEN 10 MG TABLET PO PRN (17:17)
[2019-02-01] MEDS: ACETAMINOPHEN 325 MG TABLET PO PRN (17:17)
[2019-02-01 18:09] LABS: OCCULT BLOOD NEGATIVE (NEGATIVE)
[2019-02-01] MEDS: LIDODERM 5% PATCH TD SCH (18:31)
[2019-02-01] MEDS: MORPHINE SULFATE 4 MG/ML, 1ML IVPush PRN (18:31)
[2019-02-01] MEDS: PRAVASTATIN 40 MG TABLET PO SCH (20:34)
[2019-02-01] MEDS: TRAZODONE 50MG TABLET PO PRN (20:34)
[2019-02-01 22:28] VITALS: BP 111/57
[2019-02-02 01:14] VITALS: BP 106/61
[2019-02-02 05:29] LABS: MEAN CORPUSCULAR VOLUME 73.7 fL (80-100); MEAN PLATELET VOLUME 9.1 fL (7.4-10.4); PLATELET COUNT 192 x10^3/uL (130-400); RED BLOOD COUNT 3.63 x10^6/uL (3.82-5.3); RED CELL DISTRIBUTION WIDTH 24.9 % (9.6-15.2)
[2019-02-02 05:39] LABS: ALBUMIN 2.4 g/dL (3.4-5.0); ANION GAP 5 mmol/L (5-15); CHLORIDE 111 mmol/L (98-107)
[2019-02-02 05:42] LABS: ALANINE AMINOTRANSFERASE 12 U/L (12-78); ALKALINE PHOSPHATASE 69 U/L (45-117); BILIRUBIN,TOTAL 0.5 mg/dL (0.2-1.0); CREATININE 1.27 mg/dL (0.55-1.02); TOTAL PROTEIN 5.4 g/dL (6.4-8.2)
[2019-02-02 06:02] LABS: MEAN CORPUSCULAR HGB CONC 29.8 g/dL (32.4-35.8)
[2019-02-02] MEDS: SUCRALFATE 1 GM/10 ML UDC PO SCH ×4 (06:12→20:14)
[2019-02-02] MEDS: METOPROLOL SUCCINATE 25 MG TAB.ER.24H PO SCH (06:13)
[2019-02-02] MEDS: PANTOPRAZOLE 20MG TABLET PO SCH ×2 (06:13→17:35)
[2019-02-02] MEDS: FUROSEMIDE 40 MG/4 ML IV SCH ×3 (06:13→17:35)
[2019-02-02 06:14] LABS: BASOPHILS # (AUTO) 0.03 x10^3/uL (0-0.1); BASOPHILS % (AUTO) 0 % (0-1); EOSINOPHILS # (AUTO) 0.25 x10^3/uL (0-0.4); EOSINOPHILS % (AUTO) 4 % (1-7); LYMPHOCYTES # (AUTO) 2.05 x10^3/uL (1-3.4); LYMPHOCYTES % (AUTO) 32 % (22-44); MD SCAN; MONOCYTES # (AUTO) 0.71 x10^3/uL (0.2-0.8); MONOCYTES % (AUTO) 11 % (2-9); NEUTROPHILS # (AUTO) 3.43 x10^3/uL (1.8-6.8); NEUTROPHILS % (AUTO) 53 % (42-75)
[2019-02-02] MEDS: HYDROcodone/APAP 10/325 MG TABLET PO PRN ×3 (06:20→20:15)
[2019-02-02] MEDS: CITALOPRAM 10 MG TABLET PO SCH (08:14)
[2019-02-02] MEDS: LEVETIRACETAM 500 MG TABLET PO SCH ×2 (08:17→20:15)
[2019-02-02] MEDS: ISOSORBIDE MONONITRATE ER 30 MG TABLET PO SCH (08:17)
[2019-02-02] MEDS: LIDODERM 5% PATCH TD SCH (12:17)
[2019-02-02 13:57] VITALS: BP 149/68
[2019-02-02 19:56] VITALS: BP 128/67
[2019-02-02] MEDS: PRAVASTATIN 40 MG TABLET PO SCH (20:15)
[2019-02-02] MEDS: ACETAMINOPHEN 325 MG TABLET PO PRN (22:56)
[2019-02-03 01:26] VITALS: BP 143/64
[2019-02-03] MEDS: HYDROcodone/APAP 10/325 MG TABLET PO PRN ×4 (03:37→19:25)
[2019-02-03] MEDS: BACLOFEN 10 MG TABLET PO PRN (05:21)
[2019-02-03] MEDS: PANTOPRAZOLE 20MG TABLET PO SCH ×2 (05:36→16:50)
[2019-02-03] MEDS: METOPROLOL SUCCINATE 25 MG TAB.ER.24H PO SCH (05:36)
[2019-02-03 06:06] LABS: CHLORIDE 105 mmol/L (98-107)
[2019-02-03 06:09] LABS: MEAN CORPUSCULAR HEMOGLOBIN 22.5 pg (27.0-34.8); MEAN CORPUSCULAR VOLUME 75.2 fL (80-100); MEAN PLATELET VOLUME 9.6 fL (7.4-10.4); PLATELET COUNT 216 x10^3/uL (130-400); RED BLOOD COUNT 4.11 x10^6/uL (3.82-5.3); RED CELL DISTRIBUTION WIDTH 25.5 % (9.6-15.2)
[2019-02-03 06:13] LABS: ANION GAP 6 mmol/L (5-15); CALCIUM 8.3 mg/dL (8.5-10.1); CREATININE 1.12 mg/dL (0.55-1.02)
[2019-02-03 06:14] LABS: ALBUMIN 2.6 g/dL (3.4-5.0)
[2019-02-03 06:17] VITALS: BP 119/64
[2019-02-03 06:19] LABS: MEAN CORPUSCULAR HGB CONC 29.9 g/dL (32.4-35.8)
[2019-02-03] MEDS: MORPHINE SULFATE 4 MG/ML, 1ML IVPush PRN ×2 (06:19→17:02)
[2019-02-03 06:44] LABS: BASOPHILS # (AUTO) 0.02 x10^3/uL (0-0.1); BASOPHILS % (AUTO) 0 % (0-1); EOSINOPHILS # (AUTO) 0.34 x10^3/uL (0-0.4); EOSINOPHILS % (AUTO) 5 % (1-7); LYMPHOCYTES # (AUTO) 2.12 x10^3/uL (1-3.4); LYMPHOCYTES % (AUTO) 28 % (22-44); MD SCAN; MONOCYTES # (AUTO) 0.79 x10^3/uL (0.2-0.8); MONOCYTES % (AUTO) 11 % (2-9); NEUTROPHILS # (AUTO) 4.27 x10^3/uL (1.8-6.8); NEUTROPHILS % (AUTO) 57 % (42-75)
[2019-02-03 07:00] VITALS: BP 129/65
[2019-02-03] MEDS: CITALOPRAM 10 MG TABLET PO SCH (07:51)
[2019-02-03] MEDS: ISOSORBIDE MONONITRATE ER 30 MG TABLET PO SCH (07:52)
[2019-02-03] MEDS: FUROSEMIDE 40 MG/4 ML IV SCH (07:52)
[2019-02-03] MEDS: SUCRALFATE 1 GM/10 ML UDC PO SCH ×2 (07:52→11:15)
[2019-02-03] MEDS: LEVETIRACETAM 500 MG TABLET PO SCH ×2 (07:52→20:36)
[2019-02-03] MEDS: FUROSEMIDE 40 MG TABLET PO SCH (11:00)
[2019-02-03 13:35] VITALS: BP 134/61
[2019-02-03] MEDS: CHOLECALCIFEROL 400 UNITS TABLET PO SCH (16:50)
[2019-02-03] MEDS: LIDODERM 5% PATCH TD SCH (16:51)
[2019-02-03] MEDS: ASCORBIC ACID 500 MG TABLET PO SCH (16:51)
[2019-02-03] MEDS: ACETAMINOPHEN 325 MG TABLET PO PRN (17:50)
[2019-02-03 19:17] VITALS: BP 128/50
[2019-02-03] MEDS: CALCIUM CARBONATE 500 MG TAB.CHEW PO SCH (20:36)
[2019-02-03] MEDS: PRAVASTATIN 40 MG TABLET PO SCH (20:37)
[2019-02-03] MEDS: POTASSIUM CHLORIDE 10% 40 MEQ/30 ML UDC PO SCH (21:47)
[2019-02-04] MEDS: HYDROcodone/APAP 10/325 MG TABLET PO PRN ×5 (01:13→20:43)
[2019-02-04 03:59] VITALS: BP 126/59
[2019-02-04 05:44] LABS: MEAN CORPUSCULAR HEMOGLOBIN 22.4 pg (27.0-34.8); MEAN CORPUSCULAR VOLUME 75.1 fL (80-100); MEAN PLATELET VOLUME 9.5 fL (7.4-10.4); PLATELET COUNT 203 x10^3/uL (130-400); RED BLOOD COUNT 3.86 x10^6/uL (3.82-5.3); RED CELL DISTRIBUTION WIDTH 25.7 % (9.6-15.2)
[2019-02-04 05:53] LABS: MEAN CORPUSCULAR HGB CONC 29.8 g/dL (32.4-35.8)
[2019-02-04 05:54] LABS: CHLORIDE 105 mmol/L (98-107)
[2019-02-04 05:59] LABS: ALBUMIN 2.6 g/dL (3.4-5.0); ANION GAP 4 mmol/L (5-15); CALCIUM 8.3 mg/dL (8.5-10.1); CREATININE 0.92 mg/dL (0.55-1.02)
[2019-02-04 06:00] LABS: BASOPHILS # (AUTO) 0.01 x10^3/uL (0-0.1); BASOPHILS % (AUTO) 0 % (0-1); EOSINOPHILS # (AUTO) 0.34 x10^3/uL (0-0.4); EOSINOPHILS % (AUTO) 5 % (1-7); LYMPHOCYTES # (AUTO) 2.21 x10^3/uL (1-3.4); LYMPHOCYTES % (AUTO) 30 % (22-44); MD MORPH REVIEW ONLY; MONOCYTES # (AUTO) 0.96 x10^3/uL (0.2-0.8); MONOCYTES % (AUTO) 13 % (2-9); NEUTROPHILS # (AUTO) 3.78 x10^3/uL (1.8-6.8); NEUTROPHILS % (AUTO) 52 % (42-75)
[2019-02-04 06:01] LABS: <PLATELET ESTIMATE> ADEQUATE; <PLT MORPHOLOGY> NORMAL PLT MORPH; ANISOCYTOSIS 2+; HYPOCHROMIA 2+; MICROCYTOSIS 1+; OVALOCYTES 1+
[2019-02-04 06:02] LABS: SMUDGE CELLS 1+
[2019-02-04 06:04] LABS: TEAR DROPS 1+
[2019-02-04] MEDS: METOPROLOL SUCCINATE 25 MG TAB.ER.24H PO SCH (06:36)
[2019-02-04] MEDS: PANTOPRAZOLE 20MG TABLET PO SCH ×2 (06:36→16:33)
[2019-02-04 06:42] VITALS: BP 149/65
[2019-02-04] MEDS: ASCORBIC ACID 500 MG TABLET PO SCH ×2 (08:44→16:33)
[2019-02-04] MEDS: ISOSORBIDE MONONITRATE ER 30 MG TABLET PO SCH (08:44)
[2019-02-04] MEDS: FUROSEMIDE 40 MG TABLET PO SCH (08:44)
[2019-02-04] MEDS: LEVETIRACETAM 500 MG TABLET PO SCH ×2 (08:45→20:44)
[2019-02-04] MEDS: CALCIUM CARBONATE 500 MG TAB.CHEW PO SCH ×2 (08:45→20:42)
[2019-02-04] MEDS: CITALOPRAM 10 MG TABLET PO SCH (08:45)
[2019-02-04] MEDS: MULTIVITS,STRESS FORMULA 1 TABLET PO SCH (08:46)
[2019-02-04] MEDS: POTASSIUM CHLORIDE 10% 40 MEQ/30 ML UDC PO SCH ×2 (08:47→20:42)
[2019-02-04 13:58] VITALS: BP 125/58
[2019-02-04] MEDS: CHOLECALCIFEROL 400 UNITS TABLET PO SCH (16:33)
[2019-02-04] MEDS: LIDODERM 5% PATCH TD SCH (17:09)
[2019-02-04 18:29] VITALS: BP 136/60
[2019-02-04] MEDS: PRAVASTATIN 40 MG TABLET PO SCH (20:44)
[2019-02-04] MEDS: TRAZODONE 50MG TABLET PO PRN (23:30)
[2019-02-05] MEDS: HYDROcodone/APAP 10/325 MG TABLET PO PRN ×4 (03:52→15:56)
[2019-02-05 03:55] VITALS: BP 153/72
[2019-02-05] MEDS ORDERED: ALBUTEROL/IPRATROPIUM 2.5MG/0.5MG, 3 ML ONE (05:51)
[2019-02-05] MEDS ORDERED: ALBUTEROL/IPRATROPIUM 2.5MG/0.5MG, 3 ML NPPB PRN (06:00)
[2019-02-05] MEDS: PANTOPRAZOLE 20MG TABLET PO SCH ×2 (06:05→15:56)
[2019-02-05] MEDS: METOPROLOL SUCCINATE 25 MG TAB.ER.24H PO SCH (06:05)
[2019-02-05 06:29] VITALS: BP 142/63
[2019-02-05] MEDS ORDERED: METO25TA91 PO (07:41)
[2019-02-05] MEDS ORDERED: TRAZ50TA66 PO (07:41)
[2019-02-05] MEDS ORDERED: ASCO500T6 PO (07:41)
[2019-02-05] MEDS ORDERED: CALC200T24 PO (07:41)
[2019-02-05] MEDS ORDERED: CHOL400T2 PO (07:41)
[2019-02-05] MEDS ORDERED: MULT1TAB76 PO (07:42)
[2019-02-05] MEDS ORDERED: POLY17PO5 PO (07:57)
[2019-02-05] MEDS: MULTIVITS,STRESS FORMULA 1 TABLET PO SCH (08:22)
[2019-02-05] MEDS: LEVETIRACETAM 500 MG TABLET PO SCH (08:22)
[2019-02-05] MEDS: CALCIUM CARBONATE 500 MG TAB.CHEW PO SCH (08:22)
[2019-02-05] MEDS: ASCORBIC ACID 500 MG TABLET PO SCH ×2 (08:23→15:56)
[2019-02-05] MEDS: ISOSORBIDE MONONITRATE ER 30 MG TABLET PO SCH (08:23)
[2019-02-05] MEDS: CITALOPRAM 10 MG TABLET PO SCH (08:23)
[2019-02-05] MEDS: POTASSIUM CHLORIDE 10% 40 MEQ/30 ML UDC PO SCH (08:24)
[2019-02-05] MEDS ORDERED: FLU VACC QS2019-20 36MOS UP/PF 0.5 ML IM-VACC ONE (10:00)
[2019-02-05 12:32] VITALS: BP 150/72
[2019-02-05] MEDS: CHOLECALCIFEROL 400 UNITS TABLET PO SCH (15:56)
== END 2019-02-05 16:05 | DRG 682 ==
LOC: ED 16:22 → EDIP 16:23 → ED 16:59 → 5SO 18:40 → 3N 02-03 17:35
PROVIDERS: ADMIT Family Medicine; ATTEND Family Medicine
PROC: 0W993ZZ Drainage of Right Pleural Cavity, Percutaneous Approach (ICD-10-PCS; 2019-01-22)
PROC: 30233N1 Transfusion of Nonautologous Red Blood Cells into Peripheral Vein, Percutaneous Approach (ICD-10-PCS; principal; 2019-01-26)
DX: N17.0 Acute kidney failure with tubular necrosis (principal); J96.01 Acute respiratory failure with hypoxia; E46 Unspecified protein-calorie malnutrition; E87.4 Mixed disorder of acid-base balance; I50.22 Chronic systolic (congestive) heart failure; I51.81 Takotsubo syndrome; J98.11 Atelectasis; J91.8 Pleural effusion in other conditions classified elsewhere; D50.9 Iron deficiency anemia, unspecified; E78.5 Hyperlipidemia, unspecified; E83.42 Hypomagnesemia; E83.51 Hypocalcemia; I25.10 Atherosclerotic heart disease of native coronary artery without angina pectoris; E87.6 Hypokalemia; F32.9 Major depressive disorder, single episode, unspecified; G40.909 Epilepsy, unspecified, not intractable, without status epilepticus; G89.29 Other chronic pain; I11.0 Hypertensive heart disease with heart failure; I25.82 Chronic total occlusion of coronary artery; I73.9 Peripheral vascular disease, unspecified; I70.0 Atherosclerosis of aorta; M16.12 Unilateral primary osteoarthritis, left hip; N27.0 Small kidney, unilateral; K21.9 Gastro-esophageal reflux disease without esophagitis; Z87.11 Personal history of peptic ulcer disease; I25.2 Old myocardial infarction; Z68.22 Body mass index [BMI] 22.0-22.9, adult; Z87.19 Personal history of other diseases of the digestive system; Z87.891 Personal history of nicotine dependence; Z98.1 Arthrodesis status; R73.9 Hyperglycemia, unspecified
CPT/HCPCS: 32555; 36415; 36600; 71045; 71275; 76700; 80048; 80053; 80069; 81001; 82272; 82570; 82728; 82803; 82945; 83540; 83550; 83605; 83615; 83690; 83735; 84145; 84157; 84300; 84466; 84484; 85025; 85379; 86850; 86900; 86923; 87040; 87070; 87205; 88112; 88305; 89051; 90686; 93005; 93306; 94640; 96374; 96375; G0378; J1940; J3010; J7620; Q9967; J2270; J7030; P9016

== ENCOUNTER 2019-03-29 11:37 | Inpatient (IN) | payer MEDICARE ==
[~2019-03-29] VITALS: Ht 157.5 cm; Wt 43.8 kg
[~2019-03-29 11:37] MED LIST changes: +ASCO500T6 PO; +CALC200T24 PO; +CHOL400T2 PO; +MELO7.5T31 PO; +MULT1TAB76 PO; +TRAZ50TA66 PO
--- NOTE | 2019-03-29 12:04 | NUR ---
PT CAME IN CO OF SOB OF BREATH AT HOME AND HER PULSE WAS 120-130S. BASELINE OF 4L NC O2 WAS 75%. PT PALCED ON 6 LITERS VIA NC AND IS AT 98%. BRAKE RIDER IN PLACE. HX OF THORANCENTSIS. DIMINISHED BREATH SOUNDS ON RIGHT LUNG. CALL LIGHT WITHIN REACH
[2019-03-29 12:32] LABS: ALBUMIN 3.3 g/dL (3.4-5.0); ANION GAP 6 mmol/L (5-15); CALCIUM 9.2 mg/dL (8.5-10.1); CHLORIDE 104 mmol/L (98-107)
[2019-03-29 12:35] LABS: MEAN CORPUSCULAR HEMOGLOBIN 27.1 pg (27.0-34.8); MEAN CORPUSCULAR HGB CONC 31.3 g/dL (32.4-35.8); MEAN CORPUSCULAR VOLUME 86.8 fL (80-100); MEAN PLATELET VOLUME 8.3 fL (7.4-10.4); PLATELET COUNT 333 x10^3/uL (130-400); RED BLOOD COUNT 3.58 x10^6/uL (3.82-5.3); RED CELL DISTRIBUTION WIDTH 23.5 % (9.6-15.2)
[2019-03-29 12:38] LABS: ALANINE AMINOTRANSFERASE 23 U/L (12-78); ALKALINE PHOSPHATASE 93 U/L (45-117); BILIRUBIN,TOTAL 0.6 mg/dL (0.2-1.0); CREATININE 0.81 mg/dL (0.55-1.02); TOTAL PROTEIN 7.5 g/dL (6.4-8.2); TROPONIN I 0.055 ng/mL (0.000-0.045)
[2019-03-29 12:51] LABS: BASOPHILS % (AUTO) 0 % (0-1); EOSINOPHILS # (AUTO) 0.05 x10^3/uL (0-0.4); EOSINOPHILS % (AUTO) 1 % (1-7); LYMPHOCYTES # (AUTO) 0.73 x10^3/uL (1-3.4); LYMPHOCYTES % (AUTO) 8 % (22-44); MD SCAN; MONOCYTES # (AUTO) 0.29 x10^3/uL (0.2-0.8); MONOCYTES % (AUTO) 3 % (2-9); NEUTROPHILS # (AUTO) 8.43 x10^3/uL (1.8-6.8); NEUTROPHILS % (AUTO) 89 % (42-75)
[2019-03-29] MEDS ORDERED: FUROSEMIDE 40 MG/4 ML IV ONE (13:00)
[2019-03-29] MEDS ORDERED: FUROSEMIDE 40 MG/4 ML ONE ×2 (13:06→18:58)
--- NOTE | 2019-03-29 13:18 | NUR ---
PT RESTING IN HOSPITAL BED. TBADM. LASIX GIVEN. BEDSIDE COMMODE PROVIDED.
[2019-03-29] MEDS ORDERED: HYDROcodone/APAP 10/325 MG TABLET ONE ×2 (13:43→18:16)
--- NOTE | 2019-03-29 13:55 | NUR ---
PT UP TO BEDSIDE COMMODE.
[2019-03-29] MEDS ORDERED: HYDROcodone/APAP 10/325 MG TABLET PO ONE (14:00)
--- NOTE | 2019-03-29 14:04 | NUR ---
DR. TOMLINSON IS BEDSIDE
--- NOTE | 2019-03-29 14:59 | NUR ---
MOVED PT INTO HOSPITAL BED WE ARE WAITING FOR A ROOM TO OPEN UP IN CARDIAC TELE
[2019-03-29] MEDS ORDERED: hydrALAzine 20 MG/ML, 1ML IVPush PRN (15:00)
[2019-03-29] MEDS ORDERED: ONDANSETRON 2MG/ML, 2ML IVPush PRN (15:00)
[2019-03-29] MEDS ORDERED: ACETAMINOPHEN 325 MG TABLET PO PRN (15:00)
[2019-03-29] MEDS ORDERED: HYDROcodone/APAP 10/325 MG TABLET PO SCH (15:00)
[2019-03-29 15:16] LABS: TROPONIN I 0.212 ng/mL (0.000-0.045)
--- NOTE | 2019-03-29 16:36 | NUR ---
PT IN HOSPITAL BED. WATCHING TV. NO REQUESTS AT THIS TIME
--- NOTE | 2019-03-29 17:02 | NUR ---
BREAK RN: PT CONTINUES RESTING QUIETLY, NO DISTRESS. DENIES NEEDS AT THIS TIME.
--- NOTE | 2019-03-29 17:56 | NUR ---
PT SAYS SHE TAKES HER PAIN PILL EVERY 4 HOURS. NOT EVERY 6. MD NOTIFIED.
[2019-03-29] MEDS: HYDROcodone/APAP 10/325 MG TABLET PO SCH ×2 (18:20→22:58)
[2019-03-29] MEDS: FUROSEMIDE 40 MG/4 ML IV SCH (19:02)
--- NOTE | 2019-03-29 19:12 | NUR ---
PT RESTING IN HOSPITAL BED. LASIX GIVEN. BEDSIDE COMMODE IN ROOM.
--- NOTE | 2019-03-29 20:10 | NUR ---
PT IS RESTING IN HOSPITAL BED. EYES CLOSED. NO REQUESTS AT THIS TIME
[2019-03-29 20:51] LABS: TROPONIN I 0.295 ng/mL (0.000-0.045)
[2019-03-29] MEDS ORDERED: LISINOPRIL 5 MG TABLET ONE (20:55)
[2019-03-29] MEDS ORDERED: TRAZODONE 50MG TABLET ONE (20:55)
[2019-03-29] MEDS ORDERED: LEVETIRACETAM 500 MG TABLET ONE (20:55)
[2019-03-29] MEDS: TRAZODONE 50MG TABLET PO PRN (20:59)
[2019-03-29] MEDS: LEVETIRACETAM 500 MG TABLET PO SCH (20:59)
[2019-03-29] MEDS ORDERED: LISINOPRIL 10 MG TABLET PO SCH (21:00)
--- NOTE | 2019-03-29 21:23 | NUR ---
PATIENT RESTING IN HOSPITAL BED. EYES CLOSED. NO REQUESTS AT THIS TIME
[2019-03-29] MEDS: PRAVASTATIN 40 MG TABLET PO SCH (21:34)
--- NOTE | 2019-03-29 21:56 | NUR ---
REPORT GIVEN TO RENO MONDRAGON.
[2019-03-30 00:32] VITALS: BP 116/42
[2019-03-30] MEDS: HYDROcodone/APAP 10/325 MG TABLET PO SCH ×5 (02:42→19:57)
[2019-03-30 05:02] LABS: MEAN CORPUSCULAR HEMOGLOBIN 27.4 pg (27.0-34.8); MEAN CORPUSCULAR HGB CONC 31.2 g/dL (32.4-35.8); MEAN CORPUSCULAR VOLUME 87.6 fL (80-100); MEAN PLATELET VOLUME 7.9 fL (7.4-10.4); PLATELET COUNT 291 x10^3/uL (130-400); RED BLOOD COUNT 3.18 x10^6/uL (3.82-5.3); RED CELL DISTRIBUTION WIDTH 22.7 % (9.6-15.2)
[2019-03-30 05:13] LABS: ANION GAP 5 mmol/L (5-15); CALCIUM 8.5 mg/dL (8.5-10.1); CHLORIDE 103 mmol/L (98-107)
[2019-03-30 05:15] LABS: CREATININE 0.84 mg/dL (0.55-1.02)
[2019-03-30 05:41] LABS: BASOPHILS # (AUTO) 0.02 x10^3/uL (0-0.1); BASOPHILS % (AUTO) 0 % (0-1); EOSINOPHILS # (AUTO) 0.14 x10^3/uL (0-0.4); EOSINOPHILS % (AUTO) 2 % (1-7); LYMPHOCYTES % (AUTO) 33 % (22-44); MD SCAN; MONOCYTES # (AUTO) 0.51 x10^3/uL (0.2-0.8); MONOCYTES % (AUTO) 8 % (2-9); NEUTROPHILS # (AUTO) 3.43 x10^3/uL (1.8-6.8); NEUTROPHILS % (AUTO) 56 % (42-75)
[2019-03-30] MEDS: METOPROLOL SUCCINATE 25 MG TAB.ER.24H PO SCH (06:27)
[2019-03-30 08:08] VITALS: BP 117/52
[2019-03-30] MEDS: CITALOPRAM 10 MG TABLET PO SCH (08:32)
[2019-03-30] MEDS: ATENOLOL 25 MG TABLET PO SCH (08:32)
[2019-03-30] MEDS: ISOSORBIDE MONONITRATE ER 30 MG TABLET PO SCH (08:32)
[2019-03-30] MEDS: FUROSEMIDE 40 MG/4 ML IV SCH ×2 (08:33→16:47)
[2019-03-30] MEDS: LEVETIRACETAM 500 MG TABLET PO SCH ×2 (08:33→19:56)
[2019-03-30] MEDS: LISINOPRIL 5 MG TABLET PO SCH ×2 (08:33→19:56)
[2019-03-30] MEDS ORDERED: METOPROLOL SUCCINATE 100 MG TAB.ER.24H ONE (09:46)
[2019-03-30] MEDS ORDERED: POTASSIUM CHLORIDE 20 MEQ TAB.ER.PRT PO ONE (11:30)
[2019-03-30] MEDS: POTASSIUM CHLORIDE 20 MEQ TAB.ER.PRT PO SCH (13:02)
[2019-03-30 14:50] VITALS: BP 116/47
[2019-03-30 18:58] VITALS: BP 128/56
[2019-03-30] MEDS: PRAVASTATIN 40 MG TABLET PO SCH (19:56)
[2019-03-30] MEDS: TRAZODONE 50MG TABLET PO PRN (21:51)
[2019-03-30] MEDS: ENOXAPARIN 40 MG/0.4 ML SQ SCH (21:52)
[2019-03-31] MEDS: HYDROcodone/APAP 10/325 MG TABLET PO SCH ×6 (00:05→21:11)
[2019-03-31 01:55] VITALS: BP 134/53
[2019-03-31] MEDS: METOPROLOL SUCCINATE 25 MG TAB.ER.24H PO SCH (06:10)
[2019-03-31 06:58] VITALS: BP 127/44
[2019-03-31 08:09] LABS: ANION GAP 7 mmol/L (5-15); CALCIUM 8.1 mg/dL (8.5-10.1); CHLORIDE 101 mmol/L (98-107); CREATININE 1.09 mg/dL (0.55-1.02)
[2019-03-31] MEDS: LEVETIRACETAM 500 MG TABLET PO SCH ×2 (09:05→21:12)
[2019-03-31] MEDS: SPIRONOLACTONE 25 MG TABLET PO SCH (09:06)
[2019-03-31] MEDS: POTASSIUM CHLORIDE 20 MEQ TAB.ER.PRT PO SCH (09:06)
[2019-03-31] MEDS: ATENOLOL 25 MG TABLET PO SCH (09:06)
[2019-03-31] MEDS: LISINOPRIL 5 MG TABLET PO SCH ×2 (09:06→21:12)
[2019-03-31] MEDS: CITALOPRAM 10 MG TABLET PO SCH (09:06)
[2019-03-31] MEDS: ISOSORBIDE MONONITRATE ER 30 MG TABLET PO SCH (09:06)
[2019-03-31] MEDS: FUROSEMIDE 40 MG/4 ML IV SCH ×2 (09:07→16:54)
[2019-03-31 15:12] VITALS: BP 110/50
[2019-03-31 20:00] VITALS: BP 115/54
[2019-03-31] MEDS: PRAVASTATIN 40 MG TABLET PO SCH (21:11)
[2019-03-31] MEDS: ENOXAPARIN 40 MG/0.4 ML SQ SCH (21:11)
[2019-04-01] MEDS: HYDROcodone/APAP 10/325 MG TABLET PO SCH ×6 (01:20→22:22)
[2019-04-01 02:00] VITALS: BP 130/49
[2019-04-01 05:14] LABS: ANION GAP 7 mmol/L (5-15); CALCIUM 8.2 mg/dL (8.5-10.1); CHLORIDE 102 mmol/L (98-107); CREATININE 1.01 mg/dL (0.55-1.02)
[2019-04-01 06:40] VITALS: BP 149/59
[2019-04-01] MEDS: FUROSEMIDE 40 MG/4 ML IV SCH ×2 (08:09→16:34)
[2019-04-01] MEDS: ISOSORBIDE MONONITRATE ER 30 MG TABLET PO SCH (08:10)
[2019-04-01] MEDS: LISINOPRIL 5 MG TABLET PO SCH ×2 (08:11→22:22)
[2019-04-01] MEDS: LEVETIRACETAM 500 MG TABLET PO SCH ×2 (08:11→22:22)
[2019-04-01] MEDS: CITALOPRAM 10 MG TABLET PO SCH (08:11)
[2019-04-01] MEDS: SPIRONOLACTONE 25 MG TABLET PO SCH (08:12)
[2019-04-01] MEDS ORDERED: REGADENOSON 0.4 MG/5 ML SYRINGE ONE (08:57)
[2019-04-01] MEDS ORDERED: METOPROLOL SUCCINATE 25 MG TAB.ER.24H ONE (10:36)
[2019-04-01] MEDS: POTASSIUM CHLORIDE 20 MEQ TAB.ER.PRT PO SCH (10:39)
[2019-04-01] MEDS: METOPROLOL SUCCINATE 25 MG TAB.ER.24H PO SCH (10:40)
[2019-04-01 12:14] VITALS: BP 130/59
[2019-04-01] MEDS ORDERED: SIMVASTATIN 40 MG TABLET PO SCH (21:00)
[2019-04-01 22:16] VITALS: BP 145/56
[2019-04-01] MEDS: PRAVASTATIN 40 MG TABLET PO SCH (22:22)
[2019-04-01] MEDS: TRAZODONE 50MG TABLET PO PRN (22:22)
[2019-04-01] MEDS: ENOXAPARIN 40 MG/0.4 ML SQ SCH (22:27)
[2019-04-02 02:15] VITALS: BP 125/53
[2019-04-02] MEDS: HYDROcodone/APAP 10/325 MG TABLET PO SCH ×6 (02:15→22:28)
[2019-04-02 05:01] LABS: ANION GAP 5 mmol/L (5-15); CALCIUM 8.9 mg/dL (8.5-10.1); CHLORIDE 101 mmol/L (98-107)
[2019-04-02 05:04] LABS: CREATININE 1.04 mg/dL (0.55-1.02)
[2019-04-02] MEDS: ASPIRIN 81 MG TABLET EC PO SCH (05:44)
[2019-04-02] MEDS: METOPROLOL SUCCINATE 25 MG TAB.ER.24H PO SCH (05:44)
[2019-04-02] MEDS ORDERED: METOPROLOL SUCCINATE 25 MG TAB.ER.24H PO SCH (06:00)
[2019-04-02 06:50] VITALS: BP 130/58
[2019-04-02] MEDS: LEVETIRACETAM 500 MG TABLET PO SCH ×2 (08:34→20:56)
[2019-04-02] MEDS: ISOSORBIDE MONONITRATE ER 30 MG TABLET PO SCH (08:34)
[2019-04-02] MEDS: CITALOPRAM 10 MG TABLET PO SCH (08:34)
[2019-04-02] MEDS: SPIRONOLACTONE 25 MG TABLET PO SCH (08:35)
[2019-04-02] MEDS: LISINOPRIL 5 MG TABLET PO SCH ×2 (08:35→20:56)
[2019-04-02] MEDS: POTASSIUM CHLORIDE 20 MEQ TAB.ER.PRT PO SCH (08:37)
[2019-04-02] MEDS: FUROSEMIDE 40 MG/4 ML IV SCH ×2 (08:42→18:04)
[2019-04-02 12:15] VITALS: BP 106/45
[2019-04-02 18:00] VITALS: BP 118/60
[2019-04-02 20:19] VITALS: BP 146/51
[2019-04-02 20:45] VITALS: BP 116/49
[2019-04-02] MEDS: PRAVASTATIN 40 MG TABLET PO SCH (20:55)
[2019-04-02] MEDS: ENOXAPARIN 40 MG/0.4 ML SQ SCH (20:56)
[2019-04-02] MEDS: TRAZODONE 50MG TABLET PO PRN (23:16)
[2019-04-03 00:22] VITALS: BP 106/51
[2019-04-03] MEDS: HYDROcodone/APAP 10/325 MG TABLET PO SCH ×4 (03:24→15:44)
[2019-04-03 06:00] LABS: CHLORIDE 100 mmol/L (98-107)
[2019-04-03 06:05] LABS: ANION GAP 6 mmol/L (5-15); CALCIUM 8.7 mg/dL (8.5-10.1); CREATININE 1.27 mg/dL (0.55-1.02)
[2019-04-03 06:19] VITALS: BP 103/54
[2019-04-03] MEDS: ASPIRIN 81 MG TABLET EC PO SCH (06:23)
[2019-04-03 06:40] VITALS: BP 135/48
[2019-04-03] MEDS: CITALOPRAM 10 MG TABLET PO SCH (08:25)
[2019-04-03] MEDS: LISINOPRIL 5 MG TABLET PO SCH (08:25)
[2019-04-03] MEDS: LEVETIRACETAM 500 MG TABLET PO SCH (08:25)
[2019-04-03] MEDS: ISOSORBIDE MONONITRATE ER 30 MG TABLET PO SCH (08:25)
[2019-04-03] MEDS: POTASSIUM CHLORIDE 20 MEQ TAB.ER.PRT PO SCH (08:26)
[2019-04-03] MEDS: SPIRONOLACTONE 25 MG TABLET PO SCH (08:26)
[2019-04-03] MEDS ORDERED: FUROSEMIDE 40 MG TABLET PO SCH (09:00)
[2019-04-03] MEDS ORDERED: POLYETHYLENE GLYCOL 17 GM PACKET PO PRN (09:30)
[2019-04-03] MEDS ORDERED: MAGNESIUM HYDROXIDE 8%, 30ML UDC PO PRN (09:30)
[2019-04-03 12:05] VITALS: BP 110/46
[2019-04-03] MEDS ORDERED: ATOR40TA78 PO (13:01)
[2019-04-03] MEDS ORDERED: ASPI81TA45 PO (13:01)
[2019-04-03] MEDS ORDERED: FURO40TA6 PO (13:01)
[2019-04-03] MEDS ORDERED: POTA20TA6 PO (13:01)
[2019-04-03] MEDS ORDERED: SPIR25TA PO (13:01)
[2019-04-03] MEDS ORDERED: METO25TA91 PO (13:01)
[2019-04-03] MEDS ORDERED: ATORVASTATIN 40 MG TABLET PO SCH (21:00)
[2019-04-03] MEDS ORDERED: ENOXAPARIN 30 MG/0.3 ML SQ SCH (21:00)
[2019-04-04] MEDS ORDERED: METOPROLOL SUCCINATE 25 MG TAB.ER.24H PO SCH (06:00)
== END 2019-04-03 16:00 | disposition home health service (06) | DRG 280 ==
LOC: ED 12:12 → EDIP 12:53 → 5SO 22:27 → DCLOUNGE 04-03 15:50
PROVIDERS: ADMIT Emergency Medicine; ATTEND Internal Medicine
DX: I11.0 Hypertensive heart disease with heart failure (principal); J96.21 Acute and chronic respiratory failure with hypoxia; I21.A1 Myocardial infarction type 2; I50.23 Acute on chronic systolic (congestive) heart failure; G90.4 Autonomic dysreflexia; K27.9 Peptic ulcer, site unspecified, unspecified as acute or chronic, without hemorrhage or perforation; E78.5 Hyperlipidemia, unspecified; E87.5 Hyperkalemia; I25.10 Atherosclerotic heart disease of native coronary artery without angina pectoris; I25.5 Ischemic cardiomyopathy; M16.12 Unilateral primary osteoarthritis, left hip; I44.7 Left bundle-branch block, unspecified; I73.9 Peripheral vascular disease, unspecified; I25.2 Old myocardial infarction; Z87.891 Personal history of nicotine dependence; Z98.1 Arthrodesis status; Z99.81 Dependence on supplemental oxygen
CPT/HCPCS: 36415; 71045; 78452; 80048; 80053; 83735; 83880; 84100; 84484; 85025; 93005; 93017; 99285; G0378; J1650; J1940; J2785; A9502

== ENCOUNTER 2019-07-30 14:57 | Emergency (ER) | payer MEDICARE ==
[~2019-07-30] VITALS: Ht 157.5 cm; Wt 46.0 kg
[~2019-07-30 14:57] MED LIST changes: +ATOR40TA78 PO; +FURO40TA6 PO; +POTA20TA6 PO; +SPIR25TA PO
--- NOTE | 2019-07-30 15:31 | NUR ---
SECURITY SYSTEMS TECHNICIAN: PT TO ROOM VIA WHEELCHAIR AT THIS TIME. LEE.
--- NOTE | 2019-07-30 15:42 | NUR ---
THIS IS A 83 YEAR OLD FEMALE WHO C/O OF "WATER ON THE LUNGS". PT PLACED ON CODING COMPLIANCE SPECIALIST SINUS, CONTINOUS SP02 ON OXYGEN AT 2.5LNC, AND CYCLE VS. EXPLAINED PLAN OF CARE, WARM BLANKETS GIVEN. PT VERBALIZED UNDERSTANDING
[2019-07-30 16:59] LABS: ALANINE AMINOTRANSFERASE 12 U/L (12-78); ALBUMIN 3.1 g/dL (3.4-5.0); ANION GAP 7 mmol/L (5-15); CALCIUM 8.8 mg/dL (8.5-10.1); CHLORIDE 109 mmol/L (98-107); CREATININE 1.28 mg/dL (0.55-1.02)
[2019-07-30 17:03] LABS: ALKALINE PHOSPHATASE 114 U/L (45-117); BILIRUBIN,TOTAL 0.1 mg/dL (0.2-1.0); TOTAL PROTEIN 7.4 g/dL (6.4-8.2); TROPONIN I < 0.015 ng/mL (0.000-0.045)
[2019-07-30 17:05] LABS: BASOPHILS # (AUTO) 0.04 x10^3/uL (0-0.1); BASOPHILS % (AUTO) 1 % (0-1); EOSINOPHILS # (AUTO) 0.58 x10^3/uL (0-0.4); EOSINOPHILS % (AUTO) 9 % (1-7); LYMPHOCYTES # (AUTO) 1.68 x10^3/uL (1-3.4); LYMPHOCYTES % (AUTO) 26 % (22-44); MD NO; MEAN CORPUSCULAR HEMOGLOBIN 31.3 pg (27.0-34.8); MEAN CORPUSCULAR HGB CONC 32.7 g/dL (32.4-35.8); MEAN CORPUSCULAR VOLUME 95.9 fL (80-100); MEAN PLATELET VOLUME 7.4 fL (7.4-10.4); MONOCYTES # (AUTO) 0.72 x10^3/uL (0.2-0.8); MONOCYTES % (AUTO) 11 % (2-9); NEUTROPHILS # (AUTO) 3.47 x10^3/uL (1.8-6.8); NEUTROPHILS % (AUTO) 54 % (42-75); PLATELET COUNT 345 x10^3/uL (130-400); RED BLOOD COUNT 2.69 x10^6/uL (3.82-5.3); RED CELL DISTRIBUTION WIDTH 15.5 % (9.6-15.2)
--- NOTE | 2019-07-30 17:10 | NUR ---
recheck. k 5.5. pt sleeping. vss. nad. as
--- NOTE | 2019-07-30 17:30 | NUR ---
pt tbdc/ attemptto call son x2. left message. nad. as
[2019-07-30 18:00] VITALS: BP 130/41
== END 2019-07-30 18:36 | disposition home or self-care (01) ==
LOC: ED 15:57
DX: J90 Pleural effusion, not elsewhere classified (principal); R94.31 Abnormal electrocardiogram [ECG] [EKG]; E78.5 Hyperlipidemia, unspecified; I11.9 Hypertensive heart disease without heart failure; K21.9 Gastro-esophageal reflux disease without esophagitis; M19.90 Unspecified osteoarthritis, unspecified site; I25.2 Old myocardial infarction; Z90.49 Acquired absence of other specified parts of digestive tract; Z87.891 Personal history of nicotine dependence
CPT/HCPCS: 36415; 71045; 80053; 83880; 84484; 85025; 93005; 99285